=== PATIENT | female | born 1955 | race Caucasian/White ===

== ENCOUNTER → 2023-03-15 12:12 | Outpatient (REF) | payer MEDICARE, OTHER, SELFPAY | LOC: WOUND 12:12 | PROVIDERS: ATTENDING PHYSICIAN Surgery; REFERRING PHYSICIAN Internal Medicine | DX: I87.311 Chronic venous hypertension (idiopathic) with ulcer of right lower extremity (principal); L97.412 Non-pressure chronic ulcer of right heel and midfoot with fat layer exposed; I87.2 Venous insufficiency (chronic) (peripheral); D68.61 Antiphospholipid syndrome; I73.00 Raynaud's syndrome without gangrene; Z79.01 Long term (current) use of anticoagulants; Q85.9 Phakomatosis, unspecified | CPT/HCPCS: 97597; 99214 ==

== ENCOUNTER → 2023-03-18 07:22 | Outpatient (REF) | payer MEDICARE, OTHER, SELFPAY | LOC: RAD 07:22 | PROVIDERS: ATTENDING PHYSICIAN Nurse Practitioner Family; FAMILY PHYSICIAN Internal Medicine | DX: Z13.6 Encounter for screening for cardiovascular disorders (principal); Z00.00 Encounter for general adult medical examination without abnormal findings | CPT/HCPCS: 76770 ==

== ENCOUNTER → 2023-03-22 09:16 | Outpatient (REF) | payer MEDICARE, OTHER, SELFPAY | LOC: WOUND 09:16 | PROVIDERS: ATTENDING PHYSICIAN Surgery; REFERRING PHYSICIAN Internal Medicine | DX: I87.311 Chronic venous hypertension (idiopathic) with ulcer of right lower extremity (principal); L97.412 Non-pressure chronic ulcer of right heel and midfoot with fat layer exposed; Z79.01 Long term (current) use of anticoagulants; I87.2 Venous insufficiency (chronic) (peripheral); D68.61 Antiphospholipid syndrome; I73.00 Raynaud's syndrome without gangrene; Q85.9 Phakomatosis, unspecified | CPT/HCPCS: 11042; 97597 ==

== ENCOUNTER → 2023-03-29 09:43 | Outpatient (REF) | payer MEDICARE, OTHER, SELFPAY | LOC: WOUND 09:43 | PROVIDERS: ATTENDING PHYSICIAN Surgery; FAMILY PHYSICIAN Internal Medicine | DX: I87.311 Chronic venous hypertension (idiopathic) with ulcer of right lower extremity (principal); L97.412 Non-pressure chronic ulcer of right heel and midfoot with fat layer exposed; Z79.01 Long term (current) use of anticoagulants; I87.2 Venous insufficiency (chronic) (peripheral); D68.61 Antiphospholipid syndrome; I73.00 Raynaud's syndrome without gangrene; Q85.9 Phakomatosis, unspecified | CPT/HCPCS: 11042; 97597 ==

== ENCOUNTER → 2023-04-02 14:52 | Outpatient (REF) | payer OTHER, MEDICARE, SELFPAY | LOC: HWRAD 14:52 | PROVIDERS: ATTENDING PHYSICIAN Nurse Practitioner Family | DX: M54.50 Low back pain, unspecified (principal); V89.2XXA Person injured in unspecified motor-vehicle accident, traffic, initial encounter | CPT/HCPCS: 72110 ==

== ENCOUNTER → 2023-04-05 09:46 | Outpatient (REF) | payer OTHER, MEDICARE, SELFPAY | LOC: WOUND 09:46 | PROVIDERS: ATTENDING PHYSICIAN Surgery; FAMILY PHYSICIAN Internal Medicine | DX: I87.311 Chronic venous hypertension (idiopathic) with ulcer of right lower extremity (principal); L97.412 Non-pressure chronic ulcer of right heel and midfoot with fat layer exposed; Z79.01 Long term (current) use of anticoagulants; I87.2 Venous insufficiency (chronic) (peripheral); D68.61 Antiphospholipid syndrome; I73.00 Raynaud's syndrome without gangrene; Q85.9 Phakomatosis, unspecified | CPT/HCPCS: 97597 ==

== ENCOUNTER → 2023-04-12 09:49 | Outpatient (REF) | payer OTHER, MEDICARE, SELFPAY | LOC: WOUND 09:49 | PROVIDERS: ATTENDING PHYSICIAN Surgery; FAMILY PHYSICIAN Internal Medicine | DX: I87.311 Chronic venous hypertension (idiopathic) with ulcer of right lower extremity (principal); L97.412 Non-pressure chronic ulcer of right heel and midfoot with fat layer exposed; Z79.01 Long term (current) use of anticoagulants; I87.2 Venous insufficiency (chronic) (peripheral); D68.61 Antiphospholipid syndrome; I73.00 Raynaud's syndrome without gangrene; Q85.9 Phakomatosis, unspecified | CPT/HCPCS: 99212 ==

== ENCOUNTER → 2023-04-20 10:04 | Outpatient (REF) | payer OTHER, SELFPAY | LOC: WOUND 10:04 | PROVIDERS: ATTENDING PHYSICIAN Surgery; FAMILY PHYSICIAN Internal Medicine | DX: I87.311 Chronic venous hypertension (idiopathic) with ulcer of right lower extremity (principal); L97.412 Non-pressure chronic ulcer of right heel and midfoot with fat layer exposed; I87.2 Venous insufficiency (chronic) (peripheral); D68.61 Antiphospholipid syndrome; I73.00 Raynaud's syndrome without gangrene; Q85.9 Phakomatosis, unspecified; Z79.01 Long term (current) use of anticoagulants | CPT/HCPCS: 99212 ==

== ENCOUNTER → 2023-05-03 09:39 | Outpatient (REF) | payer OTHER, SELFPAY | LOC: WOUND 09:39 | PROVIDERS: ATTENDING PHYSICIAN Surgery; FAMILY PHYSICIAN Internal Medicine | DX: I87.311 Chronic venous hypertension (idiopathic) with ulcer of right lower extremity (principal); L97.412 Non-pressure chronic ulcer of right heel and midfoot with fat layer exposed; I87.2 Venous insufficiency (chronic) (peripheral); D68.61 Antiphospholipid syndrome; I73.00 Raynaud's syndrome without gangrene; Q85.9 Phakomatosis, unspecified; Z79.01 Long term (current) use of anticoagulants | CPT/HCPCS: 11042 ==

== ENCOUNTER → 2023-05-11 13:08 | Outpatient (REF) | payer MEDICARE, OTHER, SELFPAY | LOC: RAD 13:08 | PROVIDERS: ATTENDING PHYSICIAN Surgery; FAMILY PHYSICIAN Internal Medicine | DX: I87.311 Chronic venous hypertension (idiopathic) with ulcer of right lower extremity (principal); I87.2 Venous insufficiency (chronic) (peripheral) | CPT/HCPCS: 93971 ==

== ENCOUNTER → 2023-05-17 09:46 | Outpatient (REF) | payer OTHER, SELFPAY | LOC: WOUND 09:46 | PROVIDERS: ATTENDING PHYSICIAN Surgery; FAMILY PHYSICIAN Internal Medicine | DX: I87.311 Chronic venous hypertension (idiopathic) with ulcer of right lower extremity (principal); L97.412 Non-pressure chronic ulcer of right heel and midfoot with fat layer exposed; I87.2 Venous insufficiency (chronic) (peripheral); D68.61 Antiphospholipid syndrome; I73.00 Raynaud's syndrome without gangrene; Q85.9 Phakomatosis, unspecified; Z79.01 Long term (current) use of anticoagulants | CPT/HCPCS: 99213 ==

== ENCOUNTER → 2023-05-24 09:38 | Outpatient (REF) | payer MEDICARE, OTHER, SELFPAY | LOC: WOUND 09:38 | PROVIDERS: ATTENDING PHYSICIAN Surgery; FAMILY PHYSICIAN Internal Medicine | DX: I87.311 Chronic venous hypertension (idiopathic) with ulcer of right lower extremity (principal); L97.412 Non-pressure chronic ulcer of right heel and midfoot with fat layer exposed; I87.2 Venous insufficiency (chronic) (peripheral); D68.61 Antiphospholipid syndrome; I73.00 Raynaud's syndrome without gangrene; Q85.9 Phakomatosis, unspecified; Z79.01 Long term (current) use of anticoagulants | CPT/HCPCS: 99213 ==

== ENCOUNTER → 2023-05-31 09:48 | Outpatient (REF) | payer MEDICARE, OTHER, SELFPAY | LOC: WOUND 09:48 | PROVIDERS: ATTENDING PHYSICIAN Surgery; FAMILY PHYSICIAN Internal Medicine | DX: I87.311 Chronic venous hypertension (idiopathic) with ulcer of right lower extremity (principal); L97.412 Non-pressure chronic ulcer of right heel and midfoot with fat layer exposed; I87.2 Venous insufficiency (chronic) (peripheral); I73.00 Raynaud's syndrome without gangrene; Q85.9 Phakomatosis, unspecified; Z79.01 Long term (current) use of anticoagulants | CPT/HCPCS: 99212 ==

== ENCOUNTER → 2023-06-14 11:23 | Outpatient (REF) | payer MEDICARE, OTHER, SELFPAY | LOC: WOUND 11:23 | PROVIDERS: ATTENDING PHYSICIAN Surgery; FAMILY PHYSICIAN Internal Medicine | DX: I87.311 Chronic venous hypertension (idiopathic) with ulcer of right lower extremity (principal); L97.412 Non-pressure chronic ulcer of right heel and midfoot with fat layer exposed; I87.2 Venous insufficiency (chronic) (peripheral); D68.61 Antiphospholipid syndrome; I73.00 Raynaud's syndrome without gangrene; Q85.9 Phakomatosis, unspecified; Z79.01 Long term (current) use of anticoagulants | CPT/HCPCS: 99212 ==

== ENCOUNTER → 2023-06-23 13:48 | Outpatient (REF) | payer MEDICARE, OTHER, SELFPAY | LOC: HWRAD 13:48 | PROVIDERS: ATTENDING PHYSICIAN Nurse Practitioner Family | DX: R74.8 Abnormal levels of other serum enzymes (principal) | CPT/HCPCS: 76700 ==

== ENCOUNTER → 2023-07-06 10:21 | Outpatient (REF) | payer MEDICARE, OTHER, SELFPAY | LOC: WOUND 10:21 | PROVIDERS: ATTENDING PHYSICIAN Surgery; FAMILY PHYSICIAN Internal Medicine | DX: I87.311 Chronic venous hypertension (idiopathic) with ulcer of right lower extremity (principal); L97.412 Non-pressure chronic ulcer of right heel and midfoot with fat layer exposed; I87.2 Venous insufficiency (chronic) (peripheral); D68.61 Antiphospholipid syndrome; I73.00 Raynaud's syndrome without gangrene; Q85.9 Phakomatosis, unspecified; Z79.01 Long term (current) use of anticoagulants | CPT/HCPCS: 99212 ==

== ENCOUNTER → 2023-07-19 09:42 | Outpatient (REF) | payer MEDICARE, OTHER, SELFPAY | LOC: WOUND 09:42 | PROVIDERS: ATTENDING PHYSICIAN Surgery; FAMILY PHYSICIAN Internal Medicine | DX: I87.311 Chronic venous hypertension (idiopathic) with ulcer of right lower extremity (principal); L97.412 Non-pressure chronic ulcer of right heel and midfoot with fat layer exposed; Z79.01 Long term (current) use of anticoagulants; I87.2 Venous insufficiency (chronic) (peripheral); D68.61 Antiphospholipid syndrome; I73.00 Raynaud's syndrome without gangrene; Q85.9 Phakomatosis, unspecified | CPT/HCPCS: 99212 ==

== ENCOUNTER → 2023-08-02 10:27 | Outpatient (REF) | payer MEDICARE, OTHER, SELFPAY | LOC: WOUND 10:27 | PROVIDERS: ATTENDING PHYSICIAN Surgery; FAMILY PHYSICIAN Internal Medicine | DX: I87.311 Chronic venous hypertension (idiopathic) with ulcer of right lower extremity (principal); L97.412 Non-pressure chronic ulcer of right heel and midfoot with fat layer exposed; Z79.01 Long term (current) use of anticoagulants; I87.2 Venous insufficiency (chronic) (peripheral); D68.61 Antiphospholipid syndrome; I73.00 Raynaud's syndrome without gangrene; Q85.9 Phakomatosis, unspecified | CPT/HCPCS: 99212 ==

== ENCOUNTER → 2023-08-16 10:14 | Outpatient (REF) | payer MEDICARE, OTHER, SELFPAY | LOC: WOUND 10:14 | PROVIDERS: ATTENDING PHYSICIAN Surgery; FAMILY PHYSICIAN Internal Medicine | DX: I87.311 Chronic venous hypertension (idiopathic) with ulcer of right lower extremity (principal); L97.412 Non-pressure chronic ulcer of right heel and midfoot with fat layer exposed; I87.2 Venous insufficiency (chronic) (peripheral); D68.61 Antiphospholipid syndrome; I73.00 Raynaud's syndrome without gangrene; Q85.9 Phakomatosis, unspecified | CPT/HCPCS: 99212 ==

== ENCOUNTER → 2023-09-06 10:28 | Outpatient (REF) | payer MEDICARE, OTHER, SELFPAY | LOC: WOUND 10:28 | PROVIDERS: ATTENDING PHYSICIAN Surgery; FAMILY PHYSICIAN Family Medicine | DX: I87.311 Chronic venous hypertension (idiopathic) with ulcer of right lower extremity (principal); L97.412 Non-pressure chronic ulcer of right heel and midfoot with fat layer exposed; I87.2 Venous insufficiency (chronic) (peripheral); D68.61 Antiphospholipid syndrome; I73.00 Raynaud's syndrome without gangrene; Q85.9 Phakomatosis, unspecified; Z79.01 Long term (current) use of anticoagulants | CPT/HCPCS: 11042 ==

== ENCOUNTER → 2023-09-13 10:11 | Outpatient (REF) | payer MEDICARE, OTHER, SELFPAY | LOC: WOUND 10:11 | PROVIDERS: ATTENDING PHYSICIAN Surgery; FAMILY PHYSICIAN Family Medicine | DX: I87.311 Chronic venous hypertension (idiopathic) with ulcer of right lower extremity (principal); L97.412 Non-pressure chronic ulcer of right heel and midfoot with fat layer exposed; I87.2 Venous insufficiency (chronic) (peripheral); D68.61 Antiphospholipid syndrome; I73.00 Raynaud's syndrome without gangrene; Q85.9 Phakomatosis, unspecified; Z79.01 Long term (current) use of anticoagulants | CPT/HCPCS: 11042 ==

== ENCOUNTER → 2023-09-20 11:11 | Outpatient (REF) | payer MEDICARE, OTHER, SELFPAY | LOC: WOUND 11:11 | PROVIDERS: ATTENDING PHYSICIAN Surgery; FAMILY PHYSICIAN Family Medicine | DX: I87.311 Chronic venous hypertension (idiopathic) with ulcer of right lower extremity (principal); L97.412 Non-pressure chronic ulcer of right heel and midfoot with fat layer exposed; I87.2 Venous insufficiency (chronic) (peripheral); D68.61 Antiphospholipid syndrome; I73.00 Raynaud's syndrome without gangrene; Q85.9 Phakomatosis, unspecified; Z79.01 Long term (current) use of anticoagulants | CPT/HCPCS: 11042 ==

== ENCOUNTER 2023-09-27 18:07 | Inpatient (IN) | payer MEDICARE, OTHER, SELFPAY ==
[2023-09-27] VITALS (34 sets, daily range): BP systolic 85–134; BP diastolic 59–115; BMI 24.6; BMI 25.0
[2023-09-27 15:01] LABS: % Basophils 1.7 % (0-2); % Eosinophils 4.8 % (0-6); % Immature Granulocytes 0.6 % (0-0.5); % Lymphocytes 21.3 % (20.5-51.1); % Monocytes 7.2 % (1.7-9.3); % Neutrophils 64.4 % (42.2-75.2); Absolute Basophils 0.2 10^3/uL (0-0.2); Absolute Eosinophils 0.4 10^3/uL (0-0.7); Absolute Immature Granulocytes 0.1 10^3/uL (0-0.05); Absolute Lymphocytes 1.9 10^3/uL (1.2-3.4); Absolute Monocytes 0.6 10^3/uL (0.1-0.6); Absolute Neutrophils 5.6 10^3/uL (1.4-6.5); Hematocrit 44.8 % (37.0-47.0); Hemoglobin 15.5 g/dL (12.0-16.0); Mean Corp Hgb Conc. 34.6 g/dL (33.0-37.0); Mean Corpuscular Hgb 30.3 pg (27.0-31.0); Mean Corpuscular Volume 87.5 fL (81.0-99.0); Mean Platelet Volume 9.9 fL (7.4-10.4); Nucleated Red Blood Cells % 0 %; Platelet Count 204 10^3/uL (130-400); Red Blood Cell Count 5.12 10^6/uL (4.20-5.40); Red Cell Dist. Width 14.3 % (11.5-14.5); White Blood Cell Count 8.7 10^3/uL (4.8-10.8)
[2023-09-27 15:17] LABS: ALT (SGPT) 70 U/L (0-35); AST (SGOT) 50 U/L (14-36); Albumin 4.4 g/dl (3.5-5.0); Alkaline Phosphatase 425 U/L (38-126); Blood Urea Nitrogen 16 mg/dl (7-17); Calcium 9.4 mg/dl (8.4-10.2); Carbon Dioxide 24 mmol/L (22-30); Chloride 104 mmol/L (98-107); Glucose 121 mg/dl (70-99); Sodium 137 mmol/L (135-145); Total Bilirubin 0.6 mg/dl (0.2-1.3); Total Protein 7.9 g/dl (6.3-8.2); eGFR > 60.00
[2023-09-27 15:24] LABS: Troponin I 0.881 ng/ml
--- NOTE | 2023-09-27 15:53 | ED.GENMED ---
History of Present Illness
General
Chief Complaint: Chest Pain
Time Seen by Provider: 09/27/23 15:37
History of Present Illness
History of Present Illness:
67-year-old female with history of lupus anticoagulant syndrome on warfarin presents to the emergency department for evaluation of chest tightness that began yesterday. No obvious provoking or palliating factors. She denies any exertional,
pleuritic, or positional nature to her symptoms. Symptoms worsened today, she presented for routine wound care visit and her wound care provider was concerned about her appearance thus sent her to the emergency department. Currently rates the
symptoms as 5 out of 10. Denies any fevers or chills.
Past History
Past History
ED Past Medical History: HTN and Other (antiphospholipid AB syndrome)
Social History
Tobacco: Smoker
Personal:
Living: with family
Review of Systems
Review of Systems
Allergies reviewed?: Yes
All Other Systems: ROS reviewed and negative except as documented in HPI and ROS
Phy Exam
Physical Exam
Physical Exam:
GEN: Well appearing, NAD, WDWN
Eyes: PERRLA, EOMs intact, no scleral icterus
HENT: NCAT, oral mucosa moist, no JVD
Lungs: CTAB, no wheezes, rales, rhonchi, normal chest wall excursion
Cardiac: RRR, no M/R/G, no peripheral edema. Radial pulses 2+ bilat
Abdomen: S, NT, ND, NABS, no masses or hepatosplenomegaly
Neuro: AO x 3
MSK: No gross deformity or ecchymosis. No edema. No digital clubbing
Skin: No rashes, petechiae. Normal color, no pallor or jaundice.
Psych: Calm, cooperative, proper hygiene
Scores
Heart Score for Chest Pain Patients
STEMI patient?: No
History: Moderately Suspicious
ECG: Normal
Age: >/= 65 years
Risk Factors: 1 or 2 Risk Factors
Troponin: >/= 3 x Normal Limit
Heart Score for Chest Pain Patients: 6
Heart Score Risk: 20.3% MACE over next 6 weeks
Course
Orders/Labs/Results
Orders:
Orders
09/27/23 14:39
Electrocardiogram (*1) Urgent
Reason for Study: Chest Pain
Cardiac Monitoring- Treatment ONCE
EKG- Treatment ONCE
IV Insert/Care/Rem.- Treatment PRN
O2 Therapy [RESP] Urgent
Titrate/Wean O2 to maintain O2 sat greater than (%): 90
Special Instructions: Maintain sats >/=90%
Pulse Ox/spot Check [RESP] Urgent
Quantity: 1
Special Instructions: ON ROOM AIR
09/27/23 14:50
Complete Blood Count/With Diff Urgent
Comprehensive Metabolic Panel Urgent
Troponin I Urgent
09/27/23 Dinner
NPO
Allow oral meds: Yes
Allow clear liquids: Sips of Clears
NPO with Ice Chips: Yes
09/27/23 15:48
PT/INR [Prothrombin Time] Urgent
PTT Urgent
09/27/23 15:53
Aspirin Chewable [Low Strength Aspirin] 324 mg PO NOW STA
Nitroglycerin Sublingual [Nitrostat (Sublingual)] 0.4 mg SL NOW STA
CR Chest Portable - 1 View Urgent
Comment:
Reason For Exam: chest pain
Reason Study Needs to be Portable: Other
09/27/23 16:15
Nitroglycerin 100 mg/250 ml [Nitroglycerin Premix] 100 mg in 250 ml IV PER PROTOCOL
Initial dose in mcg/min, then titrate:: 20
Titrate to keep:: Chest Pain Free
Titrate by mcg/min:: 5 mcg/min, may increase by 10 mcg/min if dose > 20 mcg/min
Frequency of titrations (minutes):: every 3-5 minutes
Maximum dose in mcg/min:: 200
Begin to taper infusion when:: Remained at goal for 2hrs
Taper by mcg/min:: 5 mcg/min
Frequency of taper (minutes) if patient maintains goal:: 30
Taper to off?: Yes
If infusion off & no longer maintaining goal:: Contact Provider
09/27/23 17:33
Admit/Transfer Patient As Directed
Co-Sign Provider:
Level of Care: Inpatient admission
Assign to:: IVU
Physician / Group: Dr. Lionel Campos
Diagnosis: [id number] myocardial infarction
Reason for Hospitalization: [id number] myocardial infarction
Expected length of stay greater than two midnights?: Yes
ELOS- Estimated Length of Stay in days: 3
I certify the patient meets the requirements for IP care: Yes
PRN Pain Medication Management As Directed
May give lesser potent ordered pain med per pt: Yes
preference::
Protocol:: Medication orders for pain may be administered in a
manner that supports deferring to patient preference
when the pt is:
- Requesting an ordered lesser potent pain medication.
Least to most potent pain medications are defined
as: acetaminophen < NSAID < tramadol < opioids
(morphine, oxycodone, hydromorphone).
- Requesting a lesser dose of the same medication IF
ORDERED.
- Requesting a less intrusive route of administration
if both routes are prescribed by the provider (PO <
IV).
09/27/23 17:36
Code Status As Directed
Resuscitation Status: Full Code
09/27/23 18:18
Troponin I Q6H
09/27/23 18:46
Echo 2D MMode Color/Doppler Routine
Reason for Study: chest pain
CARDIOLOGY CONSULT Routine
Consulting Provider: Jayden Garcia
Was physician already notified: Yes
WOUND/OSTOMY CONSULT Routine
Reason for Consult: venous stasis right heel wound; left toenail wound
Glycohemoglobin (HgbA1c) Routine
Activity As Directed
Activity Level: As Tolerated
I&O [Intake/ Output] As Directed
Frequency: q12h
INT (Intravenous Needle Therapy) As Directed
Comment: maintain peripheral IV access
Sequential Compression Device [Pneumatic Compression Sleeves] As Directed
Type: Knee high
Vital Signs As Directed
Frequency: q4h
Weight As Directed
Frequency: Daily
Ot Eval And Treat Routine
Pt Eval And Treat Routine
Activity Level: As Tolerated
DX Deep Vein Thrombosis Video Routine
09/27/23 20:00
Metoprolol [Lopressor] 25 mg PO BID
09/27/23 23:15
Troponin I Q6H
09/28/23 05:15
Troponin I Q6H
09/28/23 06:00
Type+Screen IN AM
Complete Blood Count/With Diff IN AM
Comprehensive Metabolic Panel IN AM
PTT IN AM
Prothrombin Time IN AM
09/28/23 08:00
Loratadine [Claritin] 10 mg PO DAILY
09/28/23 11:15
Troponin I Q6H
Abnormal Lab Results
09/27/23 09/27/23
14:50 15:48
Abs Immat Gran (auto) 0.1 H 10^3/uL
(0-0.05)
Immature Gran % 0.6 H %
(0-0.5)
PT 27.9 H Sec
(11.4-14.6)
APTT 53.7 H Sec
(23.4-35.0)
Glucose 121 H mg/dl
(70-99)
AST 50 H U/L
(14-36)
ALT 70 H U/L
(0-35)
Alkaline Phosphatase 425 H U/L
(38-126)
Troponin I 0.881 H* ng/ml
09/27/23 14:50
09/27/23 14:50
Vital Signs
Initial and Last Documented VS:
Initial Vital Signs
Temp Pulse Resp BP Pulse Ox
98.3 F 111 22 124/81 96
09/27/23 14:37 09/27/23 14:37 09/27/23 14:37 09/27/23 14:37 09/27/23 14:37
Last Documented Vital Signs
Temp Pulse Resp BP Pulse Ox
97.7 F 83 16 103/77 98
09/27/23 19:30 09/27/23 20:02 09/27/23 19:30 09/27/23 20:02 09/27/23 19:30
MDM/Problems Addressed
MDM/Problems Addressed:
67-year-old female presenting with chest pain. Although there is no exertional component I see no alternative diagnoses as opposed to acute coronary syndrome given the marked elevation of troponin. Fevers or positional nature to suggest
inflammatory/pericarditis/myocarditis. She has been swelling she is anticoagulated thus PE is not likely. Although EKG is nonischemic her troponin is markedly elevated, patient initially treated with aspirin and sublingual nitro with improvement
thus placed on low-dose nitroglycerin drip to titrate to pain resolution. Will admit to the hospitalist service for further management
Comment
Comment:
EKG independently interpreted by me shows normal sinus rhythm at a rate of [address] changes concerning for ischemia, QTc of 452, no priors for comparison
*Critical Care Note
Total Time (30-74mins, 75-104mins- exclusive of procedures): 35 minutes
comment:
Critical care time: 35 minutes
Critical care time was exclusive of: Separately billable procedures, treating other patients, and teaching time
Critical care was necessary to treat or prevent imminent or life-threatening deterioration of the following conditions: NSTEMI
Critical care time spent personally by me on the following activities:
[x] Review of old charts
[x] Obtaining history from patient or surrogate
[x] Ordering and review of the laboratory studies
[x] Ordering and review of radiographic studies
[x] Ordering and performing treatments and interventions
[x] Patient patient's response to treatment
[x] Development of treatment plan with patient or surrogate
ED Attending Note
-
Portions of this chart may have been created with voice recognition software.� Occasional wrong word or��sound alike� substitutions may have occurred due to the inherent limitations of voice recognition software.
Discharge Plan
Departure
Patient Disposition: Admit
Date of Disposition: 09/27/23
Time of Disposition: 16:18
Admit to: IVU
Presentation/result/management discussed w/ accepting MD/DO: Hospitalist
Discharge Problem:
Non-ST elevation TX (NSTEMI)
Interventions
Interventions:
*Risk Screen - Suicide Last Done: 09/27/23 14:37
*General Assessment Last Done: 09/27/23 14:37
*Neglect/Abuse Screening Last Done: 09/27/23 14:37
ED- Fall Risk Assessment Last Done: 09/27/23 18:40
*ED COVID-19 Vaccine History Last Done: 09/27/23 17:09
*Nursing Disposition Last Done: 09/27/23 18:40
ED- Cardiac Assessment Last Done: 09/27/23 15:41
Discharge Date and Time
Discharge Date/Time: 09/27/23 18:40
[2023-09-27] MEDS: LOW STRENGTH ASPIRIN 324 MG PO (15:55)
[2023-09-27] MEDS: NITROSTAT (SUBLINGUAL) 0.4 MG SL (15:55)
[2023-09-27 16:04] LABS: INR 2.62; PT 27.9 Sec (11.4-14.6)
[2023-09-27 16:05] LABS: APTT 53.7 Sec (23.4-35.0)
--- NOTE | 2023-09-27 16:21 | CON.CAR ---
Addendum entered and electronically signed by Jayden Garcia MD 09/27/23 17:14:
I saw and examined the patient.
The ESTIMATOR AND DRAFTER or PA's note was reviewed and I agree with the note.
Comment: General: Well developed, well nourished in NAD.
Neck: Supple, no JVD, HJR, carotids +2 B/L, no bruits bilaterally.
Heart: Non displaced PMI, RRR, no murmurs, No S3, S4, no rubs.
Lungs: Clear to auscultation bilaterally, no wheeze, rhonchi, rubs bilaterally,
normal expiratory phase.
Abdomen: Normal bowel sounds, soft, non-tender, non-distended.
Extremities: No clubbing, cyanosis or edema bilaterally.
Neuro: Grossly nonfocal, awake, alert and oriented x3.
Bianca has a history of antiphospholipid antibody syndrome on chronic warfarin, history of upper extremity DVT, hypertension, hyperlipidemia. She presented for outpatient visit for chronic leg wound. She complained of chest pain staff and was
sent to the ER. Troponin was 0.88 and is admitted. She notes some chest discomfort at present but feels it is much improved. Of note her pain is not worse with exertion or with taking a deep breath. There is no shortness of breath.
She reluctantly agrees to be admitted. Will hold Coumadin for now and hold off on heparin. Will try IV nitroglycerin. She is reluctant to consider catheterization at the present time but we can reassess based on troponins and echocardiogram.
Original Note:
Consultation
Consultation Request
Date/Time Consultation Requested: 09/27/23
Date/Time Consultation Performed: 09/27/23
Requesting Provider: Hospitalist
Performing Provider: Dr. Garcia
Reason for Consultation: Chest pain, elevated Troponin
Medical History
-
History of Present Illness:
Patient came to [facility] from the wound care center with chest pain and is now being admitted with an elevated Troponin and cardiology has been consulted. Patient says that chest pain started yesterday. Chest pain is substernal without radiation. Pain
is coming and going, but can last for minutes or hours at a time. Pain is at rest and no clear provocation with exertion. She has never had a pain like this before. No SOB. No LE pain or swelling. Her initial Troponin in the ER was 0.88. ECG without
acute changes. She thinks NTG SL x1 in the ER made the pain feel better.
PMH:
Antiphospholipid antibody syndrome
Chronic warfarin, last outpatient INR 06/2023
h/o UE DVT
HTN
Hyperlipidemia
Past Medical History
Past Medical History: Other (in HPI)
Past Surgical History: Gynecological (D&C)
Social History
Tobacco: Smoker
Alcohol: None
Drug: None
Personal: Other (estranged from her )
Living: Alone
Family History
Family History: Cancer
Allergies / Home Medications
Allergy/AdvReac Type Severity Reaction Status Date / Time
adhesive tape Allergy Rash Verified 09/27/23 14:37
�Medication �Instructions �Recorded �Confirmed �Type
warfarin 1 mg tablet 6 mg PO TU@0 02/12/18 09/27/23 History
furosemide 40 mg tablet (Lasix) 40 mg PO DAILY 12/24/22 09/27/23 History
nifedipine 60 mg tablet,extended 60 mg PO DAILY 12/24/22 09/27/23 History
release
loratadine 10 mg tablet (Claritin) 10 mg PO DAILY 09/27/23 09/27/23 History
warfarin 1 mg tablet 7 mg PO SUMOWETHFRSA@1900 09/27/23 09/27/23 History
Review of Systems
-
History Source: Patient
All other systems: Negative unless noted
Physical Exam
Vital Signs
Temp Pulse Resp BP Pulse Ox
98.3 F 98 14 107/75 94
09/27/23 14:37 09/27/23 16:00 09/27/23 16:00 09/27/23 16:00 09/27/23 16:00
GEN: NAD, AAOx3
HEENT: EOMI, MMM
LUNGS: CTA B/L, no wheezes/rales
CV: Reg, S1/S2, no murmur
ABD: soft, BS+, NT, ND
EXT: No clubbing, cyanosis, lesions or edema B/L
NEURO: Gross non-focal
SKIN: Warm, dry and pink. No rash
Lab Results
09/27/23 14:50
09/27/23 14:50
Troponin I 0.881 ng/ml H* 09/27/23 14:50
Impression / Plan
-
PCP: previously followed with Dr. Oliver and waiting to be seen as a new patient at [facility]
Cardiology: Dr. Damon, last seen 2012
Impression:
Chest pain
Elevated Troponin 0.8 initially
Hyperglycemia
Elevated LFTs
Antiphospholipid antibody syndrome
Chronic warfarin, last outpatient INR 06/2023
h/o UE DVT
HTN
Hyperlipidemia
Echo 07/28/2022: EF 60%, no wall motion abnormality, normal RV size and function
Plan:
-Patient came to [facility] from the [facility] with chest pain and is now being admitted with an elevated Troponin and cardiology has been consulted. Patient says that chest pain started yesterday. Chest pain is substernal without radiation. Pain
is coming and going, but can last for minutes or hours at a time. Pain is at rest and no clear provocation with exertion. She has never had a pain like this before. No SOB. No LE pain or swelling. Her initial Troponin in the ER was 0.88. ECG without
acute changes as reviewed by me. She thinks NTG SL x1 in the ER made the pain feel better.
-Admit and trend Troponin and ECG
-Check echo
-Start Heparin gtt once INR is below 2.5.
-Chest pain free after NTG SL x1 and then Nitro gtt started in ER. Follow BP.
-INR is therapeutic at 2.6 today. INR goal is 2.5 to 3 according to patient. INRs previously managed using a home INR machine and with the PCP, but her PCP retired and she has not checked an outpatient INR since June. Coumadin is for h/o
antiphospholipid antibody syndrome. She has a h/o UE DVTs, but has never had a LE DVT.
-Talked about possibility of cardiac cath and patient initially reluctant, but is agreeable to admission with serial Troponin and echo. Will continue to discuss next steps with patient pending echo and Troponin.
-Check CVE
-LFTs elevated. If trending down in AM then would start statin if we think this is ACS.
-BP 107/75. Patient takes nifedipine 60 mg daily as an outpatient. Would hold nifedipine and start Lopressor 25 mg BID.
[2023-09-27] MEDS: NITROGLYCERIN PREMIX 250 IV (17:02)
--- NOTE | 2023-09-27 17:35 | W.PN.UPDATE ---
Update Note
Progress Note Update
I personally performed a history and physical exam of the patient and discussed management with the resident. I reviewed the resident's note and agree with the documented findings and plan of care HPI/CC.
67-year-old female presents with a chief complaint of chest pain. She describes the pain as feeling like 'something is there.' Denies exertion exacerbating the chest pain.
108/79, 89, 19, 98.3 F, 97% RA
Gen: NAD, AAOx3.
Eyes: EOMI, PERRLA, no scleral icterus.
Neck: supple.
CV: RRR, +S1/S2, no m/r/g.
Resp: CTAB, no rales, wheezes, or rhonchi.
Abd: +BS, soft, NT, ND
Skin: No rashes.
Neuro: CN 2-12 intact, non-focal.
Psych: Normal mood and affect.
Lab Results
09/27/23 09/27/23
14:50 15:48
WBC 8.7
RBC 5.12
Hgb 15.5
Hct 44.8
MCV 87.5
MCH 30.3
MCHC 34.6
RDW 14.3
Plt Count 204
MPV 9.9
Abs Immat Gran (auto) 0.1 H
Absolute Neuts (auto) 5.6
Absolute Lymphs (auto) 1.9
Absolute Monos (auto) 0.6
Absolute Eos (auto) 0.4
Absolute Basos (auto) 0.2
Immature Gran % 0.6 H
Neutrophils % 64.4
Lymphocytes % 21.3
Monocytes % 7.2
Eosinophils % 4.8
Basophils % 1.7
Nucleated RBC % 0
PT 27.9 H
INR 2.62
APTT 53.7 H
Sodium 137
Potassium 4.0
Chloride 104
Carbon Dioxide 24
BUN 16
Creatinine 0.9
eGFR > 60.00
Glucose 121 H
Calcium 9.4
Total Bilirubin 0.6
AST 50 H
ALT 70 H
Alkaline Phosphatase 425 H
Troponin I 0.881 H*
Total Protein 7.9
Albumin 4.4
ECG (read by me): NSR @ 88, normal axis/intervals, no acute ST/TW changes
Elevated trop:
-Trop 0.881, cont to trend
-monitor on tele
-check echo
-cont NTG gtt, titrate to alleviate chest discomfort
-Holding home coumadin (treatment for APLAb). Initiate heparin gtt once INR<2
-discussed with Dr. Garcia
--- NOTE | 2023-09-27 17:46 | HPS.HSE ---
Family Physician
-
Family Physician: Barbara Oliver
Chief Complaint
-
Chest pain
History of Present Illness
Bianca Joy, age 67, was the the wound care center earlier this morning on 09-27-23 when she mentioned she was experiencing chest pain since yesterday and at present; she was sent to the emergency for further evaluation. The pain is
intermittent, sometimes persists for minutes and goes away, and other times persists for hours and goes away. Not alleviated or exacerbated with rest or activity, respectively. No other identifiable palliative factors. At worst, the pain is 5/10 but
usually 2/10. On admission, her blood work was notable for troponin 0.88. ECG and chest x-ray were unremarkable. She was admitted for further evaluation and management.
Medical History
Past Medical History
Past Medical History: Reports Other (antiphospholipid antibody syndrome, hypertension, venous stasis, allergic rhinitis, history of DVT in UE and subclavian vein, venous ulcer)
Past Surgical History: Reports Other (D&C)
Social History
Tobacco: Smoker
Alcohol: Occasional
Drug: None
Living: Alone
Family History
Family History: Not pertinent
Allergies / Home Medications
Allergies reflects when Allergies were last updated in [employer].
Home Medications with original date entered in [employer]
Allergy/Medication List:
Allergies
Allergy/AdvReac Type Severity Reaction Status Date / Time
adhesive tape Allergy Rash Verified 09/27/23 14:37
Home Medications
warfarin 1 mg tablet 6 mg PO TU@189902/12/18
furosemide 40 mg tablet (Lasix) 40 mg PO DAILY 12/24/22
nifedipine 60 mg tablet,extended release 60 mg PO DAILY 12/24/22
loratadine 10 mg tablet (Claritin) 10 mg PO DAILY 09/27/23
warfarin 1 mg tablet 7 mg PO SUMOWETHFRSA@189909/27/23
Review of Systems
-
History Source: Patient
Constitutional: Reports No Symptoms
EENT: Reports No Symptoms
Respiratory: Reports No Symptoms
Cardiac: Reports Chest Pain (5/10 at worst; 2/10 at baseline)
Abdomen/GI: Reports No Symptoms
: Reports No Symptoms
Musculoskeletal: Reports No Symptoms
Skin: Reports No Symptoms
Neurological: Reports No Symptoms
Endocrine: Reports No Symptoms
Hematologic/Lymphatic: Reports No Symptoms
Psych: Reports No Symptoms
Physical Exam
Vital Signs
Vital Signs
Temp Pulse Resp BP Pulse Ox
98.3 F 89 19 108/79 97
09/27/23 14:37 09/27/23 17:03 09/27/23 17:03 09/27/23 17:03 09/27/23 17:07
Physical Exam
General: No Apparent Distress and Comfortable
HEENT: NormoCephalic, Anicteric, Moist mucous membranes, Atraumatic and No Ptosis
Respiratory: Clear and Non Labored Respirations
Cardiac: S1/S2 and Regular Rhythm
Breast: Deferred by me
GI: Soft, Non Tender, Non Distended and No Hepatosplenomegaly
Rectal: Deferred by Provider
Genito-urinary: No costovertebral tender
Musculoskeletal: No Clubbing, No Cyanosis and No Edema
Skin: Warm, Dry, IV/Catheter Site and Other (right heel wound; left toenail wound)
Neuro: Awake, Alert, Oriented and Nonfocal/grossly intact
Hematologic/Lymphatic: No Lymphadenopathy
Psych: Calm
Laboratory Results
-
09/27/23 14:50
09/27/23 14:50
Laboratory Results
PT 27.9 Sec (11.4-14.6) H 09/27/23 15:48
INR 2.62 09/27/23 15:48
APTT 53.7 Sec (23.4-35.0) H 09/27/23 15:48
Total Bilirubin 0.6 mg/dl (0.2-1.3) 09/27/23 14:50
AST 50 U/L (14-36) H 09/27/23 14:50
ALT 70 U/L (0-35) H 09/27/23 14:50
Alkaline Phosphatase 425 U/L (38-126) H 09/27/23 14:50
Troponin I 0.881 ng/ml H* 09/27/23 14:50
Impression/Plan
-
Impression and plan
Elevated troponin
Suspected [id number] myocardial infarction
- Troponin 0.881 on admission; trend to peak.
- Check echocardiogram.
- Continue nitroglycerine drip with hold parameters for hypotension.
- Holding warfarin; can start heparin drip if INR <2.0 in the morning.
- Hold nifedipine and furosemide; continue metoprolol.
- Admit to IVU; monitor on telemetry.
- NPO for now; may need catheterization.
Antiphospholipid antibody syndrome
History of upper extremity deep vein thrombosis
- INR within range on warfarin; holding for now.
- Re-check INR in AM.
Chronic venous stasis
Stage III right heel venous stasis wound
- Hold furosemide.
- Consult wound care; gets debridement at the center.
Essential hypertension
- Hold medications per above; continue metoprolol.
Allergic rhinitis
- Continue loratadine.
VTE prophylaxis
- Hold warfarin; can eventually do heparin drip per above.
- SCD.
Code status
- Full.
[2023-09-27] MEDS: TYLENOL 650 MG PO (19:17)
[2023-09-27] MEDS: LOPRESSOR 25 MG PO (19:19)
--- NOTE | 2023-09-27 20:41 | PTCARENOTE ---
Pt. received from ED at change of shift. Pt. AOx3 with 2/10 chest pain and 6/10 LE pain. VS WNL. Tele reading NSR. No other complaints at this time. Pt. oriented to room. Continuing to monitor at this time.
[2023-09-27] MEDS: ULTRAM 25 MG PO (22:55)
[2023-09-28] VITALS (7 sets, daily range): BP systolic 98–123; BP diastolic 66–91; BMI 24.4
[2023-09-28] MEDS: TYLENOL 650 MG PO ×2 (03:59→11:20)
[2023-09-28] MEDS: TORADOL 15 MG IV ×2 (05:06→23:54)
[2023-09-28 05:18] LABS: % Basophils 2.2 % (0-2); % Eosinophils 11.2 % (0-6); % Immature Granulocytes 0.7 % (0-0.5); % Lymphocytes 33.8 % (20.5-51.1); % Neutrophils 43.1 % (42.2-75.2); Absolute Basophils 0.2 10^3/uL (0-0.2); Absolute Eosinophils 0.9 10^3/uL (0-0.7); Absolute Immature Granulocytes 0.1 10^3/uL (0-0.05); Absolute Lymphocytes 2.6 10^3/uL (1.2-3.4); Absolute Monocytes 0.7 10^3/uL (0.1-0.6); Absolute Neutrophils 3.3 10^3/uL (1.4-6.5); Hematocrit 39.1 % (37.0-47.0); Hemoglobin 13.6 g/dL (12.0-16.0); Mean Corp Hgb Conc. 34.8 g/dL (33.0-37.0); Mean Corpuscular Hgb 30.1 pg (27.0-31.0); Mean Corpuscular Volume 86.5 fL (81.0-99.0); Mean Platelet Volume 10.4 fL (7.4-10.4); Nucleated Red Blood Cells % 0 %; Platelet Count 205 10^3/uL (130-400); Red Blood Cell Count 4.52 10^6/uL (4.20-5.40); Red Cell Dist. Width 14.2 % (11.5-14.5); White Blood Cell Count 7.7 10^3/uL (4.8-10.8)
[2023-09-28 05:24] LABS: INR 2.47; PT 26.7 Sec (11.4-14.6)
[2023-09-28 05:25] LABS: APTT 56.1 Sec (23.4-35.0)
[2023-09-28 07:17] LABS: ALT (SGPT) 60 U/L (0-35); AST (SGOT) 45 U/L (14-36); Alkaline Phosphatase 371 U/L (38-126); Blood Urea Nitrogen 20 mg/dl (7-17); Calcium 9.2 mg/dl (8.4-10.2); Carbon Dioxide 20 mmol/L (22-30); Chloride 105 mmol/L (98-107); Estimated Creatinine Clearance 72 ml/min; Glucose 98 mg/dl (70-99); HDL Cholesterol 56 mg/dl; LDL Cholesterol, Calculated 159 mg/dl; Potassium 3.8 mmol/L (3.5-5.1); Sodium 134 mmol/L (135-145); Total Bilirubin 0.5 mg/dl (0.2-1.3); Total Cholesterol 239 mg/dl (50-199); Total Protein 6.9 g/dl (6.3-8.2); Triglyceride 120 mg/dl (10-149); Very Low Density Lipoprotein 24 mg/dl (0-30); eGFR > 60.00
[2023-09-28] MEDS: LOPRESSOR 25 MG PO (08:22)
[2023-09-28] MEDS: CLARITIN 10 MG PO (08:22)
--- NOTE | 2023-09-28 09:04 | W.PN.HOSP.TC ---
Addendum entered and electronically signed by Lionel Campos MD 09/28/23 09:26:
I saw and evaluated the patient. I reviewed the resident�s note and agree with findings and plan as documented in the resident�s note.
Gen: NAD, AAOx3.
Eyes: EOMI, PERRLA, no scleral icterus.
Neck: supple.
CV: remains RRR, +S1/S2, no m/r/g.
Resp: remains CTAB, no rales, wheezes, or rhonchi.
Abd: remains +BS, soft, NT, ND
Skin: No rashes.
Neuro: CN 2-12 intact, non-focal.
Psych: Normal mood and affect.
ECG (read by me): NSR @ 88, normal axis/intervals, no acute ST/TW changes
Elevated trop:
-Trop trending up, now 1.500
-monitor on tele
-check echo
-was briefly on NTG gtt on admission, now off
-Holding home coumadin (treatment for APLAb). Initiate heparin gtt once INR<2.
-discussed with Dr. Garcia at length
-will need cath but INR needs to be lower. Dr. Gilmore to eval. Consideration is being given for Vit K administration. If Vit K is given will need to keep a close eye on INR (would check Q12H) and bridge with heparin as soon as INR < 2.
Total time spent on today's encounter was 50 minutes which included time spent in counseling the patient/family regarding diagnosis and treatment plan as listed above, goals of care, and symptom management. Case was discussed with nursing staff,
specialists, and care coordinators/case management. All labs and imaging personally reviewed by me. Remainder the time spent in detailed review of previous records, lab data, imaging, and other medical provider documentation.
Original Note:
Today's Communication/Plan
-
- Catheterization and echocardiogram today.
- Continue metoprolol, and nitroglycerin if needed.
Assessment / Plan
Assessment / Plan
Assessment
Bianca Joy, age 67, was at the wound care center earlier this morning on 09-27-23 when she mentioned she was experiencing chest pain since yesterday and at present; she was sent to the emergency for further evaluation. The pain is
intermittent, sometimes persists for minutes and goes away, and other times persists for hours and goes away. Not alleviated or exacerbated with rest or activity, respectively. No other identifiable palliative factors. At worst, the pain is 5/10 but
usually 2/10. On admission, her blood work was notable for troponin 0.88. ECG and chest x-ray were unremarkable. She was admitted for further evaluation and management.
Impression and plan
Elevated troponin
Suspected hqk-GS-[id number] myocardial infarction
- Troponin 0.881 on admission, peaked at 1.500.
- Check echocardiogram.
- Nitroglycerine drip with hold parameters for hypotension.
- Holding warfarin; can start heparin drip if INR <2.0.
- Hold nifedipine and furosemide; continue metoprolol.
- Admit to IVU; monitor on telemetry.
- NPO; planned catheterization today.
Antiphospholipid antibody syndrome
History of upper extremity deep vein thrombosis
- INR within range on warfarin; holding for now.
- Re-check INR.
Chronic venous stasis
Stage III right heel venous stasis wound
- Hold furosemide.
- Consult wound care; gets debridement at the center.
Essential hypertension
- Hold medications per above; continue metoprolol.
Allergic rhinitis
- Continue loratadine.
VTE prophylaxis
- Hold warfarin; can eventually do heparin drip per above.
- SCD.
Code status
- Full.
Anticipated Discharge: 24 - 48 hours
Subjective/Interval History
-
Date of Service: September 28, 2023
Objective Data
-
Labs:
Laboratory Results
09/28/23 09/28/23
04:50 05:53
WBC 7.7
Hgb 13.6
Hct 39.1
Plt Count 205
PT 26.7 H
INR 2.47
APTT 56.1 H
Sodium Cancelled 134 L
Potassium Cancelled 3.8
Chloride Cancelled 105
Carbon Dioxide Cancelled 20 L
BUN Cancelled 20 H
Creatinine Cancelled 0.7
Glucose Cancelled 98
Calcium Cancelled 9.2
Total Bilirubin Cancelled 0.5
AST Cancelled 45 H
ALT Cancelled 60 H
Alkaline Phosphatase Cancelled 371 H
Vital Signs:
Vital Signs
Temp Pulse Resp BP Pulse Ox
97.4 F 76 16 99/67 99
09/28/23 07:28 09/28/23 03:17 09/28/23 07:28 09/28/23 03:17 09/28/23 07:28
I&O
09/27/23 09/28/23 09/29/23
06:59 06:59 06:59
Intake Total 150 / 150
Balance 150 / 150
Review of Systems
-
History Source: Patient
Constitutional: Reports No Symptoms
EENT: Reports No Symptoms Reported
Respiratory: Reports No Symptoms
Cardiac: Reports No Symptoms
Abdomen/GI: Reports No Symptoms
Breast: Reports No Symptoms
Genitourinary: Reports No Symptoms
Musculoskeletal: Reports No Symptoms
Skin: Reports No Symptoms
Neuro: Reports No Symptoms
Endocrine: Reports No Symptoms
Hematologic / Lymphatic: Reports No Symptoms
Allergy / Immunology: Reports No Symptoms
Physical Exam
-
General: No Apparent Distress and Comfortable
HEENT: Normocephalic, Atraumatic, Moist Mucous Membranes and Anicteric
Respiratory: Clear to Auscultation and Non Labored Respirations
Cardiac: Regular Rhythm and S1/S2
GI: Soft, Nontender and Nondistended
Genito-urinary: No Costovertebral Tender
Musculoskeletal: No Clubbing, No Cyanosis and No Edema
Skin: Warm and IV Access / Catheter Site
Psych: Calm
[2023-09-28] MEDS: MEPHYTON 2.5 MG PO (10:36)
--- NOTE | 2023-09-28 11:48 | WOUNDNOTE ---
R LATERAL HEEL/ANKLE
--- NOTE | 2023-09-28 11:49 | WOUNDNOTE ---
R LATERAL HEEL/ANKLE WITH FLASH
--- NOTE | 2023-09-28 11:49 | WOUNDNOTE ---
L 2ND TOE TIP
--- NOTE | 2023-09-28 11:50 | WOUNDNOTE ---
CHIO RN note: Patient admitted with Non ST elevation IA.
See H&P for complete history.
PMH: lupus anticoagulant syndrome, DVT upper extremity- on chronic Coumadin, HTN, arthritis, wounds on feet.
Wound Location and type/assessment: Patient admitted with: R lateral ankle/heel venous ulcer. Goes to [facility] who sent patient to ER last visit, reviewed current treatment with Dr. Su. Coflex compression wrap was removed at [facility] yesterday and
dry gauze dressing applied to wound. Base of wound mostly pink with scant yellow adherent slough, periwound macerated. Has scattered red dots on R leg, cluster on anterior ankle, patient states she got from Coflex wrap.+ palpable pedal pulses, heels
are intact, trace edema. L 2nd toe FT ulcer, yellow dry slough, small drainage, goes to Insole Reinforcer for treatment. Patient reports it started when patient tried to clean under nail bed causing ulcer. Insole Reinforcer removed nail last visit and patient
currently using a band aid. Both wounds painful to touch.
Appetite: Good.
Pressure redistribution devices in place: On air mattress, is ad moses, can be on Accumax bed
Plan:Recommend honey gel dressing to both wounds, skin prep periwound. Julio wrap to R leg daily as tolerates.
Will confirm orders with hospitalist and updated nurse Fadumo. Called [employer] for supplies.
Updated care plan and will follow as needed.
Note to case management of equipment requested for discharge: none.
Recommend follow up at wound care center upon discharge.
[2023-09-28 12:30] LABS: Glycohemoglobin (HgbA1c) 5.1 % (4.0-5.6)
--- NOTE | 2023-09-28 13:04 | W.PN.CARDCBS ---
Addendum entered and electronically signed by Jayden Garcia MD 09/28/23 14:15:
I saw and examined the patient.
The CHRISTIAN COUNSELOR or PA's note was reviewed and I agree with the note.
Comment: General: Well developed, well nourished in NAD.
Neck: Supple, no JVD, HJR, carotids +2 B/L, no bruits bilaterally.
Heart: Non displaced PMI, RRR, no murmurs, No S3, S4, no rubs.
Lungs: Clear to auscultation bilaterally, no wheeze, rhonchi, rubs bilaterally,
normal expiratory phase.
Extremities: No clubbing, cyanosis or edema bilaterally.
Neuro: Grossly nonfocal, awake, alert and oriented x3.
Discussed with patient in detail and she is agreeable to consider cardiac catheterization. Continue to hold warfarin and will need to consider IV heparin when INR drops below 2.0. She had vitamin K and hopefully catheterization can be done in the
next 24 to 48 hours. Start Lipitor 40 mg. Check echocardiogram.
Original Note:
Today's Communication / Plan
-
Echo pending
Warfarin on hold
Provided 2.5 mg vitamin K
Repeat INR this afternoon, once INR less than 2 initiate heparin drip
Tentative cardiac catheterization within next 24 to 48 hours once INR less than 1.8
Initiate 40 mg atorvastatin
Impression / Plan
-
PCP: previously followed with Dr. Oliver and waiting to be seen as a new patient at [facility]
Cardiology: Dr. Damon, last seen 2012
Impression:
Presented 09/27/2023 with chest pain
Elevated Troponin 0.8 initially, peak 1.50
Hyperglycemia
Elevated LFTs
Antiphospholipid antibody syndrome
Chronic warfarin, last outpatient INR 06/2023
h/o UE DVT
HTN
Hyperlipidemia
Echo 07/28/2022: EF 60%, no wall motion abnormality, normal RV size and function
Echo 09/28/2023: Pending
Plan:
-Presented 09/27/2023 with chest pain improved with sublingual nitroglycerin and ASA 325 mg x 1 in ED.
-Abnormal troponin, peaked at 1.50. Suspect NSTEMI
-EKG shows sinus rhythm without ischemic changes. Telemetry reviewed without arrhythmia
-Patient currently chest pain-free and has not required any additional nitroglycerin
-Echo pending
-Plan is for cardiac catheterization once INR is less than 1.8, Ideally less than 1.5. Patient is agreeable to this plan
-Patient has history of antiphospholipid antibody syndrome with history of upper extremity DVTs. Maintained on chronic anticoagulation with warfarin. INR goal is 2.5 to 3 according to patient. INRs previously managed using a home INR machine and
with the PCP, but her PCP retired and she has not checked an outpatient INR since June.
-Coumadin placed on hold at time of admission INR dropped from 2.62->2.47. After multi disciplinary team discussion patient was provided vitamin K (Mephyton) 2.5 mg 09/28/2023 in am. INR being repeated in PM of 09/28/2023. Once INR less than 2.0
would initiate IV heparin per protocol.
-LFTs elevated. These appear to be chronically elevated and workup as outpatient included abdominal ultrasound in June 2023 which showed no acute hepatobiliary abnormalities with cholelithiasis.
-Lipids prestatin TC 239, HDL 56, LDL 159, triglycerides 120 will initiate atorvastatin 40 mg daily
-Patient takes nifedipine 60 mg daily as an outpatient. Nifedipine held and and start Lopressor 25 mg BID. GDMT as BP allows
HPI 09/27/2023:
Patient came to [facility] from the [facility] care center with chest pain and is now being admitted with an elevated Troponin and cardiology has been consulted. Patient says that chest pain started yesterday. Chest pain is substernal without radiation. Pain
is coming and going, but can last for minutes or hours at a time. Pain is at rest and no clear provocation with exertion. She has never had a pain like this before. No SOB. No LE pain or swelling. Her initial Troponin in the ER was 0.88. ECG without
acute changes as reviewed by me. She thinks NTG SL x1 in the ER made the pain feel better.
Progress Note - Sleeper Cutter
Subjective
Date of Service: September 28, 2023
Patient seen and examined. Patient ambulating around room without chest pain or shortness of breath. Overall she is feeling well.
Objective
Labs:
09/28/23 04:50
09/28/23 05:53
Labs
Hgb 13.6 g/dL (12.0-16.0) 09/28/23 04:50
Hct 39.1 % (37.0-47.0) 09/28/23 04:50
Plt Count 205 10^3/uL (130-400) 09/28/23 04:50
PT 26.7 Sec (11.4-14.6) H 09/28/23 04:50
INR 2.47 09/28/23 04:50
APTT 56.1 Sec (23.4-35.0) H 09/28/23 04:50
Sodium 134 mmol/L (135-145) L 09/28/23 05:53
Potassium 3.8 mmol/L (3.5-5.1) 09/28/23 05:53
BUN 20 mg/dl (7-17) H 09/28/23 05:53
Creatinine 0.7 mg/dL (0.6-1.0) 09/28/23 05:53
Glucose 98 mg/dl (70-99) 09/28/23 05:53
Troponins
09/27/23 09/27/23 09/27/23
14:50 18:18 23:05
Troponin I 0.881 H* 1.150 H* D 1.450 H* D
09/28/23 09/28/23
04:50 10:55
Troponin I 1.500 H* 1.260 H*
Vital Signs and I&O:
Vital Signs
Temp Pulse Resp BP Pulse Ox
97.5 F 91 16 9967 100
09/28/23 11:51 09/28/23 11:51 09/28/23 11:51 09/28/23 03:17 09/28/23 11:51
Vital Signs
Temp Pulse Resp BP Pulse Ox
97.5 F 91 16 100
09/28/23 11:51 09/28/23 11:51 09/28/23 11:51 09/28/23 03:17 09/28/23 11:51
Intake & Output
09/26/23 09/27/23 09/28/23 09/29/23
06:59 06:59 06:59 06:59
Intake Total 150 / 150
Balance 150 / 150
Physical Exam
Physical Exam
GEN: No distress, awake, Ox3, walking around room
HEENT: supple, anicteric, mmm
LUNGS: CTA, no wheezes/rales
CV: Reg, S1/S2, no murmur, rub or gallop
ABD: soft, BS+, NT/ND
EXT: No edema, edema or cyanosis, right lower extremity in Julio wrap, left second toe wrapped in gauze
NEURO: Gross non-focal
SKIN: No rash, warm, dry, pink
--- NOTE | 2023-09-28 13:20 | CM ---
Reviewed chart. Met with Mrs. Bunn to review discharge plans. She states prior to admission she resides alone in a three story home with one step to enter. She states she has a full flight of steps to get to her full bathroom/bedroom. She
states she has a powder room on the first floor. She states prior to admission she was independent with ambulation and adls. She states she does not have any DME in the home. She states she has a prescription plan and uses [facility]. She states
she goes to the [facility] weekly. Medical work-up in progress. The discharge plan is return home with resumption of weekly visits at the [facility]ound Care [facility] when medically stable.
[2023-09-28] MEDS: TYLENOL 1000 MG PO ×2 (15:48→21:37)
[2023-09-28] MEDS: LIPITOR 40 MG PO (17:42)
--- NOTE | 2023-09-28 18:25 | PTCARENOTE ---
Pt c/o R ankle, L 2nd toe and lower back pain, unrelieved with Tylenol. Hospitalist resident, Carlos Aleman, notified, Lidoderm patch x2 ordered.
[2023-09-28 19:29] LABS: INR 1.61
[2023-09-28] MEDS: LOPRESSOR PO (20:59)
[2023-09-28 21:33] LABS: Hematocrit 39.3 % (37.0-47.0); Hemoglobin 13.8 g/dL (12.0-16.0); Mean Corp Hgb Conc. 35.1 g/dL (33.0-37.0); Mean Corpuscular Hgb 31.4 pg (27.0-31.0); Mean Corpuscular Volume 89.5 fL (81.0-99.0); Mean Platelet Volume 10.3 fL (7.4-10.4); Platelet Count 216 10^3/uL (130-400); Red Blood Cell Count 4.39 10^6/uL (4.20-5.40); Red Cell Dist. Width 14.1 % (11.5-14.5); White Blood Cell Count 10.1 10^3/uL (4.8-10.8)
[2023-09-28] MEDS: LIDOCAINE 4% PATCH 2 PATCH TOPICAL (21:38)
[2023-09-28 21:45] LABS: APTT 39.8 Sec (23.4-35.0)
[2023-09-28] MEDS: HEPARIN 25000 UNITS/250 ML IV (21:51)
[2023-09-29] VITALS (14 sets, daily range): BP systolic 77–126; BP diastolic 45–80; PULSE 74; O2SAT 99; BMI 24.5
--- NOTE | 2023-09-29 03:29 | DOWNTIME ---
There was a [employer] Client Junk Removal Specialist Downtime on 09/29/2023 from 0100 to 09/29/2023 at 0252. Downtime documentation of patient's care, including medication administrations, has been reconciled in the electronic record per guidelines. Refer to the
patient's paper chart under the miscellaneous tab to see printed paper medication records and downtime forms.
[2023-09-29 04:47] LABS: Hematocrit 39.4 % (37.0-47.0); Hemoglobin 13.7 g/dL (12.0-16.0); Mean Corp Hgb Conc. 34.8 g/dL (33.0-37.0); Mean Corpuscular Hgb 29.9 pg (27.0-31.0); Mean Platelet Volume 10.5 fL (7.4-10.4); Platelet Count 228 10^3/uL (130-400); Red Blood Cell Count 4.58 10^6/uL (4.20-5.40); Red Cell Dist. Width 14.1 % (11.5-14.5); White Blood Cell Count 19.1 10^3/uL (4.8-10.8)
[2023-09-29 05:07] LABS: INR 1.09; PT 13.9 Sec (11.4-14.6)
[2023-09-29 05:09] LABS: APTT 47.9 Sec (23.4-35.0); Blood Urea Nitrogen 28 mg/dl (7-17); Calcium 9.4 mg/dl (8.4-10.2); Carbon Dioxide 22 mmol/L (22-30); Chloride 103 mmol/L (98-107); Estimated Creatinine Clearance 63 ml/min; Glucose 118 mg/dl (70-99); Potassium 4.2 mmol/L (3.5-5.1); Sodium 132 mmol/L (135-145); eGFR > 60.00
--- NOTE | 2023-09-29 05:15 | PTCARENOTE ---
Assumed care of pt. at change of shift. VSS, NSR on tele. Pt. with complaints of 8/10 b/l foot pain. Tylenol and lidocaine patches administered per order, patient reported no relief of pain. REIMBURSEMENT REP made aware and ordered one time dose of Toradol IV.
Pt. reported slight improvement of pain following dose. INR resulted 1.61 and patient started on heparin gtt per order, currently infusing at 10ml/hr. Patient remains NPO since midnight for cardiac cath in AM. Plan of care discussed and pt.
verbalizes understanding. Can make needs known. Call loyd within reach.
--- NOTE | 2023-09-29 08:30 | W.PN.HOSP.TC ---
Addendum entered and electronically signed by Lionel Campos MD 09/29/23 08:57:
I saw and evaluated the patient. I reviewed the resident�s note and agree with findings and plan as documented in the resident�s note.
Patient denies chest pain or shortness of breath. She expresses frustration over being in the hospital.
Gen: NAD, AAOx3.
Eyes: EOMI, PERRLA, no scleral icterus.
Neck: supple.
CV: continues to remain RRR, +S1/S2, no m/r/g.
Resp: continues to remain CTAB, no rales, wheezes, or rhonchi.
Abd: continues to remain +BS, soft, NT, ND
Skin: No rashes.
Neuro: CN 2-12 intact, non-focal.
Psych: Normal mood and affect.
ECG (read by me): NSR @ 88, normal axis/intervals, no acute ST/TW changes
Echo: Normal left ventricular chamber size. Mild concentric left ventricular
hypertrophy. Mildly reduced left ventricular systolic function. Global
hypokinesis. LV ejection fraction is 45-50% by Dillard's method of discs.
Normal diastolic function.
Normal right ventricular size and function.
Normal atria.
Mitral annular calcification. Mild mitral regurgitation.
Trace tricuspid regurgitation. Estimated pulmonary artery pressure of 20-25
mmHg. Assuming a right atrial pressure of 8 mmHg.
Normal pericardium without effusion.
The IVC is mildly dilated.
No prior study for comparison.
Elevated trop due to acute NSTEMI (POA):
-Trop peaked at 1.500, now trending down
-monitor on tele
-echo above, notable for EF 45-50%, global hypokinesis
-was briefly on NTG gtt on admission, now off
-cont heparin gtt for bridging (APLAb syndrome)
-cardiac cath today
Original Note:
Today's Communication/Plan
-
- Catheterization today.
- Wound care.
Assessment / Plan
Assessment / Plan
Assessment
Bianca Joy, age 67, was at the wound care center earlier this morning on 09-27-23 when she mentioned she was experiencing chest pain since yesterday and at present; she was sent to the emergency for further evaluation. The pain is
intermittent, sometimes persists for minutes and goes away, and other times persists for hours and goes away. Not alleviated or exacerbated with rest or activity, respectively. No other identifiable palliative factors. At worst, the pain is 5/10 but
usually 2/10. On admission, her blood work was notable for troponin 0.88. ECG and chest x-ray were unremarkable. She was admitted for further evaluation and management.
Impression and plan
Elevated troponin
Suspected qhj-QS-bksgcajtu myocardial infarction
- Troponin 0.881 on admission, peaked at 1.500.
- Echocardiogram from 09-28-23: global hypokinesis, with an LVEF of 45-50%.
- Holding warfarin; on heparin drip since INR <2.0.
- Hold nifedipine and furosemide; continue metoprolol.
- Admit to IVU; monitor on telemetry.
- NPO; planned catheterization today.
Antiphospholipid antibody syndrome
History of upper extremity deep vein thrombosis
- Warfarin bridged to heparin.
- Re-check INR.
Chronic venous stasis
Stage III right heel venous stasis wound
- Hold furosemide.
- Consult wound care; gets debridement at the center.
Essential hypertension
- Hold medications per above; continue metoprolol.
Allergic rhinitis
- Continue loratadine.
VTE prophylaxis
- Hold warfarin; now heparin drip.
- SCD.
Code status
- Full.
Anticipated Discharge: Within 24 hours
Subjective/Interval History
-
Date of Service: September 29, 2023
Objective Data
-
Labs:
Laboratory Results
09/28/23 09/29/23 09/29/23
21:23 04:29 07:25
WBC 10.1 19.1 H
Hgb 13.8 13.7
Hct 39.3 39.4
Plt Count 216 228
PT 13.9
INR 1.09
APTT 39.8 H 47.9 H Cancelled
Sodium 132 L
Potassium 4.2
Chloride 103
Carbon Dioxide 22
BUN 28 H
Creatinine 0.8
Glucose 118 H
Calcium 9.4
09/29/23
11:15
WBC
Hgb
Hct
Plt Count
PT
INR
APTT Pending
Sodium
Potassium
Chloride
Carbon Dioxide
BUN
Creatinine
Glucose
Calcium
Vital Signs:
Vital Signs
Temp Pulse Resp BP Pulse Ox
98 F 85 20 126/80 97
09/29/23 07:52 09/29/23 04:14 09/29/23 07:52 09/29/23 04:14 09/29/23 07:52
I&O
09/28/23 09/29/23 09/30/23
06:59 06:59 06:59
Intake Total 150 / 150
Balance 150 / 150
Review of Systems
-
History Source: Patient
Constitutional: Reports No Symptoms
EENT: Reports No Symptoms Reported
Respiratory: Reports No Symptoms
Cardiac: Reports No Symptoms
Abdomen/GI: Reports No Symptoms
Breast: Reports No Symptoms
Genitourinary: Reports No Symptoms
Musculoskeletal: Reports No Symptoms
Skin: Reports No Symptoms
Neuro: Reports No Symptoms
Endocrine: Reports No Symptoms
Hematologic / Lymphatic: Reports No Symptoms
Allergy / Immunology: Reports No Symptoms
Physical Exam
-
General: No Apparent Distress and Comfortable
HEENT: Normocephalic, Atraumatic, Moist Mucous Membranes and Anicteric
Respiratory: Clear to Auscultation and Non Labored Respirations
Cardiac: Regular Rhythm and S1/S2
GI: Soft, Nontender and Nondistended
Genito-urinary: No Costovertebral Tender
Musculoskeletal: No Clubbing, No Cyanosis and No Edema
Skin: Warm and IV Access / Catheter Site
Psych: Calm
[2023-09-29] MEDS: CLARITIN 10 MG PO (08:52)
[2023-09-29] MEDS: LOW STRENGTH ASPIRIN 324 MG PO (08:53)
[2023-09-29] MEDS: TYLENOL 1000 MG PO ×3 (08:53→22:17)
[2023-09-29] MEDS: LOPRESSOR 25 MG PO (08:54)
--- NOTE | 2023-09-29 09:53 | PTCARENOTE ---
sent in bed with warehouse laborer team to warehouse laborer. NPO before procedure. hep gtt removed. SR. OLEARY.
--- NOTE | 2023-09-29 10:05 | ITS.CL.CATH ---
[facility] - Catheterization
Cardiac Catheterization
Procedure Report:
LEFT HEART CATHETERIZATION
Date of Procedure: September 29, 2023
Referring: Jayden Garcia M.D.
PROCEDURES:
1. Left heart catheterization, coronary angiogram.
2. Ultrasound-guided access.
INDICATION: Concern for NSTEMI
ACCESS: Right Radial artery, 6 Fr sheath, under US guidance.
HEMODYNAMICS : (mmHg)
AO (s/d) : 106/63
LV (s/d) : 112/11
LVEDP : 16
CORONARY FINDINGS
DOMINANCE: Right
LEFT MAIN: The left main artery is a large-caliber vessel which gives rise to the left anterior descending artery and the left circumflex artery. There is minimal luminal irregularities.
LEFT ANTERIOR DESCENDING: The left anterior descending artery is a medium caliber vessel which gives rise to 2 major diagonal branches as it courses to the anterior interventricular groove and wraps around the apex. There is 40 to 50% ostial LAD
stenosis. Distal to apical LAD tapers into a small caliber vessel.
CIRCUMFLEX: The left circumflex artery is a medium to large caliber vessel which gives rise to 2 major obtuse marginal branches, a large left posterolateral branch and multiple small caliber posterolateral branches. There is minimal luminal
irregularities.
RIGHT CORONARY ARTERY: The right coronary artery is a medium caliber, dominant vessel which gives rise to the right posterior descending artery. There is mild diffuse disease in the mid RCA but otherwise minimal luminal irregularities.
SEDATION: 29 minutes of procedural sedation was utilized. An independent back office medical assistant was present to assist with and help manage the patient's level of consciousness and physiologic status.
RADIATION SUMMARY: Fluoro Time (min): 2.0, Dose (mGy): 208.85, DAP (Gy.cm2) : 12.14
Closure Device: Vascular band over right radial artery, 10 cc of air
CONCLUSIONS
1. Non-obstructive coronary artery disease.
2. Moderate disease at the ostial LAD.
3. Mildly elevated LVEDP at 16 mmHg
RECOMMENDATIONS
1. Continue goal-directed medical therapy for nonischemic cardiomyopathy. Repeat echocardiogram in 3 months on optimal goal-directed medical therapy.
2. Wean radial band per protocol.
3. Aggressive management of cardiovascular risk factors.
4. Strongly encourage complete smoking cessation.
5. Referral for outpatient cardiac rehab.
Copy to: Jayden Garcia
Hanna Gilmore MD, FACC, [facility]
--- NOTE | 2023-09-29 11:30 | PTCARENOTE ---
Assumed care of pt from prev nsg shift, AAOx3; Pt w/no c/o CP or SOB. Pt w/R radial band still in place; 3cc of air removed at 1130. No signs or symptoms of bleeding or hematoma from the site. Pt w/good R radial pulse. Pt's VS stable w/HR in the
60's & BP 116/68. Pt is SR on telemetry monitoring. Pt w/call loyd within reach & plan of care ongoing.
[2023-09-29] MEDS: LIPITOR 40 MG PO (19:40)
[2023-09-29] MEDS: COUMADIN 3 MG PO (19:41)
[2023-09-29] MEDS: COUMADIN 4 MG PO (19:41)
[2023-09-29] MEDS: TOPROL XL 25 MG PO (19:42)
[2023-09-29] MEDS: HEPARIN 25000 UNITS/250 ML IV (19:47)
[2023-09-29] MEDS: LIDOCAINE 4% PATCH 2 PATCH TOPICAL (22:18)
[2023-09-30 03:38] LABS: % Basophils 1.1 % (0-2); % Eosinophils 11.9 % (0-6); % Immature Granulocytes 0.4 % (0-0.5); % Monocytes 7.7 % (1.7-9.3); % Neutrophils 62.9 % (42.2-75.2); Absolute Basophils 0.1 10^3/uL (0-0.2); Absolute Eosinophils 1.3 10^3/uL (0-0.7); Absolute Lymphocytes 1.7 10^3/uL (1.2-3.4); Absolute Monocytes 0.8 10^3/uL (0.1-0.6); Absolute Neutrophils 6.8 10^3/uL (1.4-6.5); Hematocrit 38.7 % (37.0-47.0); Hemoglobin 13.1 g/dL (12.0-16.0); Mean Corp Hgb Conc. 33.9 g/dL (33.0-37.0); Mean Corpuscular Hgb 30.7 pg (27.0-31.0); Mean Corpuscular Volume 90.6 fL (81.0-99.0); Mean Platelet Volume 11.1 fL (7.4-10.4); Nucleated Red Blood Cells % 0 %; Platelet Count 230 10^3/uL (130-400); Red Blood Cell Count 4.27 10^6/uL (4.20-5.40); Red Cell Dist. Width 14.1 % (11.5-14.5); White Blood Cell Count 10.8 10^3/uL (4.8-10.8)
[2023-09-30 03:43] VITALS: BP 126/69
[2023-09-30 03:45] VITALS: BMI 24.6
[2023-09-30 03:55] LABS: INR 0.97; PT 12.9 Sec (11.4-14.6)
[2023-09-30 03:56] LABS: APTT 56.5 Sec (23.4-35.0)
[2023-09-30 04:01] LABS: Blood Urea Nitrogen 22 mg/dl (7-17); Calcium 9.1 mg/dl (8.4-10.2); Carbon Dioxide 26 mmol/L (22-30); Chloride 105 mmol/L (98-107); Estimated Creatinine Clearance 63 ml/min; Glucose 117 mg/dl (70-99); Potassium 4.5 mmol/L (3.5-5.1); Sodium 139 mmol/L (135-145); eGFR > 60.00
--- NOTE | 2023-09-30 04:39 | PTCARENOTE ---
Pt. remains in NSR with VSS. Heparin gtt restarted post cath per order and currently infusing at 12ml/hr. R radial cath site dry/intact with no complications noted. No complaints of chest pain. Plan of care discussed and patient verbalizes
understanding. Call loyd within reach.
[2023-09-30 06:56] VITALS: BP 133/70
[2023-09-30] MEDS: TYLENOL 1000 MG PO ×2 (09:15→16:50)
[2023-09-30] MEDS: TOPROL XL 25 MG PO (09:15)
[2023-09-30] MEDS: CLARITIN 10 MG PO (09:15)
[2023-09-30] MEDS: COZAAR 25 MG PO (09:16)
[2023-09-30] MEDS: LOW STRENGTH ASPIRIN 81 MG PO (09:16)
[2023-09-30] MEDS: LASIX 20 MG PO (09:16)
--- NOTE | 2023-09-30 10:00 | W.PN.HOSP.TC ---
Addendum entered and electronically signed by Lionel Campos MD 09/30/23 10:13:
I saw and evaluated the patient. I reviewed the resident�s note and agree with findings and plan as documented in the resident�s note.
Patient denies chest pain or shortness of breath.
Gen: NAD, AAOx3.
Eyes: EOMI, PERRLA, no scleral icterus.
Neck: supple.
CV: RRR, +S1/S2, no m/r/g.
Resp: CTAB, no rales, wheezes, or rhonchi.
Abd: +BS, soft, NT, ND
Skin: No rashes.
Neuro: CN 2-12 intact, non-focal.
Psych: Normal mood and affect.
ECG (read by me): NSR @ 88, normal axis/intervals, no acute ST/TW changes
Echo: Normal left ventricular chamber size. Mild concentric left ventricular
hypertrophy. Mildly reduced left ventricular systolic function. Global
hypokinesis. LV ejection fraction is 45-50% by [employer] method of discs.
Normal diastolic function.
Normal right ventricular size and function.
Normal atria.
Mitral annular calcification. Mild mitral regurgitation.
Trace tricuspid regurgitation. Estimated pulmonary artery pressure of 20-25
mmHg. Assuming a right atrial pressure of 8 mmHg.
Normal pericardium without effusion.
The IVC is mildly dilated.
No prior study for comparison.
Elevated trop due to acute NSTEMI (POA):
-Trop peaked at 1.500, then trended down
-echo above, notable for EF 45-50%, global hypokinesis
-was briefly on NTG gtt on admission, now off
-cont heparin gtt for bridging (APLAb syndrome)
-cardiac cath 09/29/23 without obstructive coronary artery disease
Antiphospholipid antibody syndrome:
-Continue heparin/Coumadin bridge
Original Note:
Today's Communication/Plan
-
- Follow coags.
- Heparin to warfarin bridging.
- Wound care.
Assessment / Plan
Assessment / Plan
Assessment
Bianca Joy, age 67, was at the wound care center earlier this morning on 09-27-23 when she mentioned she was experiencing chest pain since yesterday and at present; she was sent to the emergency for further evaluation. The pain is
intermittent, sometimes persists for minutes and goes away, and other times persists for hours and goes away. Not alleviated or exacerbated with rest or activity, respectively. No other identifiable palliative factors. At worst, the pain is 5/10 but
usually 2/10. On admission, her blood work was notable for troponin 0.88. ECG and chest x-ray were unremarkable. She was admitted for further evaluation and management.
Impression and plan
Elevated troponin
Suspected [id number] myocardial infarction
- Troponin 0.881 on admission, peaked at 1.500.
- Echocardiogram from 09-28-23: global hypokinesis with an LVEF of 45-50%.
- Continue bridging heparin to warfarin.
- Hold nifedipine and furosemide; continue metoprolol.
- Admit to IVU; monitor on telemetry.
- Left heart catheterization 09-29-23: non-obstructive coronary artery disease.
Antiphospholipid antibody syndrome
History of upper extremity deep vein thrombosis
- Heparin bridge to warfarin.
- Follow coags.
Chronic venous stasis
Stage III right heel venous stasis wound
- Hold furosemide.
- Consult wound care; gets debridement at the center.
Essential hypertension
- Hold medications per above; continue metoprolol and losartan.
Allergic rhinitis
- Continue loratadine.
VTE prophylaxis
- Heparin to warfarin bridging.
- SCD.
Code status
- Full.
Anticipated Discharge: 24 - 48 hours
Subjective/Interval History
-
Date of Service: September 30, 2023
Objective Data
-
Labs:
Laboratory Results
09/30/23 09/30/23 09/30/23
03:21 08:34 10:30
WBC 10.8
Hgb 13.1
Hct 38.7
Plt Count 230
PT 12.9 Pending
INR 0.97 Pending
APTT 56.5 H Pending
Sodium 139
Potassium 4.5
Chloride 105
Carbon Dioxide 26
BUN 22 H
Creatinine 0.8
Glucose 117 H
Calcium 9.1
Vital Signs:
Vital Signs
Temp Pulse Resp BP Pulse Ox
98.1 F 80 18 133/70 99
09/30/23 06:54 09/30/23 09:00 09/30/23 06:54 09/30/23 06:56 09/30/23 06:56
I&O
09/29/23 09/30/23 10/01/23
06:59 06:59 06:59
Intake Total 480 / 480
Balance 480 / 480
Review of Systems
-
History Source: Patient
Constitutional: Reports No Symptoms
EENT: Reports No Symptoms Reported
Respiratory: Reports No Symptoms
Cardiac: Reports No Symptoms
Abdomen/GI: Reports No Symptoms
Breast: Reports No Symptoms
Genitourinary: Reports No Symptoms
Musculoskeletal: Reports No Symptoms
Skin: Reports No Symptoms
Neuro: Reports No Symptoms
Endocrine: Reports No Symptoms
Hematologic / Lymphatic: Reports No Symptoms
Allergy / Immunology: Reports No Symptoms
Physical Exam
-
General: No Apparent Distress and Comfortable
HEENT: Normocephalic, Atraumatic, Moist Mucous Membranes and Anicteric
Respiratory: Clear to Auscultation and Non Labored Respirations
Cardiac: Regular Rhythm and S1/S2
GI: Soft, Nontender and Nondistended
Genito-urinary: No Costovertebral Tender
Musculoskeletal: No Clubbing, No Cyanosis and No Edema
Skin: Warm and IV Access / Catheter Site
Psych: Calm
[2023-09-30 10:04] VITALS: PULSE 88
--- NOTE | 2023-09-30 10:18 | W.PN.CARDCBS ---
Addendum entered and electronically signed by Ninoska Ponce DO 09/30/23 16:00:
I saw and examined the patient.
The Leather Shaver's note was reviewed and I agree with the note.
Comment: Patient seen and examined ambulating in room without symptoms. No chest pain or pressure. No shortness of breath. No palpitations.
General: No acute distress, AAOX3
Neck: Negative JVD
Heart: Regular, Negative S3 positive S1/S2, Negative S4, No murmur
Lungs: CTA b/l, negative wheezes/rales/rhonchi
Abd: Positive BS, NT/ND, neg rebound/rigidity/guarding
EXT: No edema. Right radial site intact.
Plan:
Presented with chest pain and elevated troponin, peak 1.5 with mildly reduced LV systolic function, estimated 45-50%
-Left heart catheterization with 40 to 50% ostial LAD disease but no obstructive coronary disease; no revascularization performed
-Continue aggressive risk factor reduction including lipid reduction.
-LDL 159 and patient started on atorvastatin 40 mg daily this admission.
-Smoking cessation advised repeatedly.
Mildly reduced LV systolic function without evidence of volume overload
-EF reduced at 45-50%. New to Toprol XL 25 mg BID and losartan 25 mg daily.
-Outpatient dose of nifedipine 60 mg stopped in favor of CM meds.
-Surveillance echo monitoring as an outpatient
-Patient has history of antiphospholipid antibody syndrome with history of upper extremity DVTs. Maintained on chronic anticoagulation with warfarin. INR goal is 2.5 to 3 according to patient. INRs previously managed using a home INR machine and
with the PCP, but her PCP retired and she has not checked an outpatient INR since June.
-Patient was given Vit K 2.5 mg PO x1 on 09/28/23. Usual dose of warfarin restarted 09/29/23 PM, but despite that her INR continues to drift down. Talked with the Coumadin clinic in [facility] office and we will manage patient's INRs for now in the name of
patient safety and lack of outpatient care. Will obtain a STAT INR at lab on Wednesday with results to me (vision mixer). [facility] Suspect it will take 1-2 weeks for INR to be back to therapeutic.
Will increase outpatient dose of warfarin to 8 mg daily while bridging with Lovenox 80 mg SQ q 12 hours.
-Appreciate help of CM.
-There are no cardiac indication for warfarin.
Discharge planning per primary including helping to facilitate outpatient internal medicine follow-up
Outpatient cardiac follow-up to be arranged
Original Note:
Today's Communication / Plan
-
Lovenox to warfarin bridge
Impression / Plan
-
PCP: previously followed with Dr. Oliver and waiting to be seen as a new patient at [facility]
Cardiology: Dr. Damon, last seen 2012
Impression:
Presented 09/27/2023 with chest pain
Elevated Troponin 0.8 initially, peak 1.50
Hyperglycemia
Elevated LFTs
Antiphospholipid antibody syndrome
Chronic warfarin, last outpatient INR 06/2023
h/o UE DVT
HTN
Hyperlipidemia
Echo 07/28/2022: EF 60%, no wall motion abnormality, normal RV size and function
Echo 09/28/2023: EF 45-50%, mild conc LVH, normal RV size and function, mild MR
Plan:
-Troponin peaked at 1.5. Patient had chest pain. Patient had nonobstructive CAD on cath with a 40-50% ostial LAD. EF down to 45%.
-Patient was not started on DAPT due to need for warfarin and lack of obstructive CAD on cath.
-LDL 159 and patient started on atorvastatin 40 mg daily this admission.
-Smoking cessation advised repeatedly.
-EF reduced at 45-50%. New to Toprol XL 25 mg BID and losartan 25 mg daily.
-Outpatient dose of nifedipine 60 mg stopped in favor of CM meds.
-Patient has history of antiphospholipid antibody syndrome with history of upper extremity DVTs. Maintained on chronic anticoagulation with warfarin. INR goal is 2.5 to 3 according to patient. INRs previously managed using a home INR machine and
with the PCP, but her PCP retired and she has not checked an outpatient INR since June.
-Patient was given Vit K 2.5 mg PO x1 on 09/28/23. Usual dose of warfarin restarted 09/29/23 PM, but despite that her INR continues to drift down. Talked with the Coumadin clinic in [facility] office and we will manage patient's INRs for now in the name of
patient safety and lack of outpatient care. Will obtain a STAT INR at lab on Wednesday with results to on-call sourcing intern. [facility] Suspect it will take 1-2 weeks for INR to be back to
therapeutic. Will increase outpatient dose of warfarin to 8 mg daily while bridging with Lovenox 80 mg SQ q 12 hours.
-Appreciate help of CM.
-There are no cardiac indication for warfarin.
-74 minutes in face to face time and in coordination of outpatient Lovenox to warfarin bridging protocol
HPI 09/27/2023:
Patient [facility] with chest pain and is now being admitted with an elevated Troponin and cardiology has been consulted. Patient says that chest pain started yesterday. Chest pain is substernal without radiation. Pain
is coming and going, but can last for minutes or hours at a time. Pain is at rest and no clear provocation with exertion. She has never had a pain like this before. No SOB. No LE pain or swelling. Her initial Troponin in the ER was 0.88. ECG without
acute changes as reviewed by me. She thinks NTG SL x1 in the ER made the pain feel better.
Progress Note - [employer] Associate
Subjective
Date of Service: September 30, 2023
Patient is anxious for d/c to home
Objective
Labs:
09/30/23 03:21
09/30/23 03:21
Labs
Hgb 13.1 g/dL (12.0-16.0) 09/30/23 03:21
Hct 38.7 % (37.0-47.0) 09/30/23 03:21
Plt Count 230 10^3/uL (130-400) 09/30/23 03:21
PT 12.9 Sec (11.4-14.6) 09/30/23 03:21
INR 0.97 09/30/23 03:21
APTT 56.5 Sec (23.4-35.0) H 09/30/23 03:21
Sodium 139 mmol/L (135-145) 09/30/23 03:21
Potassium 4.5 mmol/L (3.5-5.1) 09/30/23 03:21
BUN 22 mg/dl (7-17) H 09/30/23 03:21
Creatinine 0.8 mg/dL (0.6-1.0) 09/30/23 03:21
Glucose 117 mg/dl (70-99) H 09/30/23 03:21
Troponins
09/27/23 09/27/23 09/27/23
14:50 18:18 23:05
Troponin I 0.881 H* 1.150 H* D 1.450 H* D
09/28/23 09/28/23
04:50 10:55
Troponin I 1.500 H* 1.260 H*
Vital Signs and I&O:
Vital Signs
Temp Pulse Resp BP Pulse Ox
98.1 F 80 18 133/70 99
09/30/23 06:54 09/30/23 09:00 09/30/23 06:54 09/30/23 06:56 09/30/23 06:56
Vital Signs
Temp Pulse Resp BP Pulse Ox
98.1 F 80 18 133/70 99
09/30/23 06:54 09/30/23 09:00 09/30/23 06:54 09/30/23 06:56 09/30/23 06:56
Intake & Output
09/28/23 09/29/23 09/30/23 10/01/23
06:59 06:59 06:59 06:59
Intake Total 150 / 150 480 / 480
Balance 150 / 150 480 / 480
Physical Exam
Physical Exam
GEN: NAD, AAOx3
HEENT: EOMI
LUNGS: No audible wheeze
CV: SR on tele
ABD: ND
EXT: No edema B/L
NEURO: Gross non-focal
SKIN: No rash
[2023-09-30 11:36] VITALS: BP 115/78
[2023-09-30 12:20] LABS: INR 1.01; PT 13.3 Sec (11.4-14.6)
[2023-09-30 12:22] LABS: APTT 67.2 Sec (23.4-35.0)
--- NOTE | 2023-09-30 13:08 | CM ---
Reviewed chart. Met with Mrs. Joy to review discharge plans. She states she is hoping she will be able to go home soon. She states she maybe able to go home on Enoxparin Sodium. Telephone call to [facility] to see if they have 7 syringes of 80 mg
Lovenox. [facility] states they have ten syringes. She will need seven. Telephone call to [facility] to check her co-pay for Lovenox. Her co-pay would be $5.00. Reviewed co-pay with her. She is agreeable to the co-pay. Prior to admission she
resides alone in a three story home with one step to enter. She has a full flight of steps to get to bedroom/full bathroom. She has a powder room on the first. Prior to admission she was independent with ambulation and adls. She does not have any
DME in the home. She has a prescription plan and uses [facility]. She [facility]. Medical work-up in progress. The discharge plan is to return home with resumption of the [facility] when medically stable.
--- NOTE | 2023-09-30 16:38 | W.DCSUMMARY ---
Addendum entered and electronically signed by Lionel Campos MD 10/01/23 08:19:
Total time spent on d/c = 34 min. This included today's physical exam, progress note, review of laboratory and diagnostic data, preparation of discharge documents and prescriptions, and discussions about the pt's hospital course and discharge plan
with the patient and other medical information officer involved in the patient's care.
Read, reviewed, and agree. See same day progress note for additional details.
Original Note:
Discharge Summary
Discharge Data
Date of Admission: 09/27/23
Date of Discharge: 09/30/23
-
Pending Results: No
Hospital Course
Primary discharge diagnosis
* [id number] myocardial infarction
Secondary discharge diagnoses
- Mildly reduced left ventricular systolic function without evidence of volume overload
- Antiphospholipid antibody syndrome
- History of upper extremity deep vein thrombosis
- Chronic venous stasis
- Stage III right heel venous stasis wound
- Essential hypertension
- Allergic rhinitis
Hospital course
Bianca Joy, age 67, was at the [facility] care center on the morning on 09-27-23 when she mentioned she was experiencing chest pain since yesterday and at present; she was sent to the emergency where she was noted to have troponin elevation with
normal ECG. She was started on a nitroglycerine drip and her symptoms resolved with that. She was admitted for further evaluation and management. Her medical history is pertinent for antiphospholipid antibody syndrome on long-term warfarin. She was
bridged from warfarin to heparin; underwent left heart catheterization and an echocardiogram. The former was notable for non-obstructive coronary artery disease and the latter for global hypokinesia with left ventricular ejection fraction of 45-50%.
Her symptoms did not reoccur - her vitals and blood work remained stable throughout the visit.
She will be discharged home on a heparin to warfarin bridge with enoxaparin; she has done this in the past. Bridging was explained by several providers. She was provided with the following written instructions on that, as well as contact details for
follow-up: Increase warfarin dose to 8 mg (two 4 mg tablets) once a day. Inject yourself with Lovenox 80 mg subcutaneous syringe every 12 hours until INR is at least greater than 2. Check STAT INR at [facility] outpatient lab this Wednesday,
10-02-23. The lab is open until noon on Wednesday, please go by then. About 2 hours later, call the cardiology office at [phone] to reach the answering service and leave a message asking for a call back about your INR result to get instructions
for dosing. Strongly emphasized the importance of quitting smoking, dietary modifications, and adherence to new medications post-discharge for further disease prevention. Outpatient follow-up with cardiology and primary, both within 1 week.
Follow-up echocardiogram as an outpatient, per cardiology.
Discharge Plan
-
Patient Disposition: Home (Routine Discharge)
Discharge Diagnosis/Procedures: [id number] myocardial infarction
Condition: Good
Diet: Low Cholesterol and Low Sodium
Activity: Other activity
Driving Restrictions: No driving for 24 hours
Bathing Restrictions: OK to Shower
Specialty Instructions: Weigh Daily- Call MD for wt gain/loss 3 lbs overnight/5 lbs in 1 week
Activity Restrictions/Additional Instructions:
Wound Care Instructions
R lateral ankle/heel and L 2nd toe: Clean with mild soap and water, skin prep periwound, smear of honey gel, adaptic, 2x2 gauze or dry dressing, change daily and prn drainage
Pad anterior ankle under mariaelena wrap knee high daily as tolerated, remove at bedtime
R leg elevation when sitting
Follow up at wound care center call for an appointment.
Instructions: Quitting smoking
Stand Alone Forms: DC Instructions- Cath/EP Lab
Referrals:
Barbara Oliver MD [Family Provider] - in less than 1 week
Paulo Damon MD [Active] - in less than 1 week
Additional Discharge Medication Instructions: -STOP nifedipine
-Note decreased dose Lasix (furosemide)
-Increase warfarin dose to 8 mg (two 4 mg tablets) once a day
-Inject yourself with Lovenox 80 mg subcutaneous syringe every 12 hours until INR is at least greater than 2.
-Check a STAT INR at [facility] outpatient lab this 10/02/23. The lab is open until noon on Wednesday, please go by then. About 2 hours later, call the cardiology office at [phone] to reach the answering service and leave a
message asking for a call back about your INR result to get instructions for dosing.
Prescriptions:
New
atorvastatin 40 mg Tablet
40 mg PO QPM Qty: 30 11RF
losartan 25 mg Tablet
25 mg PO DAILY Qty: 30 11RF
aspirin 81 mg Tablet,Chewable
81 mg PO DAILY Qty: 30 0RF
furosemide 20 mg Tablet
20 mg PO DAILY Qty: 30 11RF
metoprolol succinate 25 mg Tablet Extended Release 24 Hr
25 mg PO BID Qty: 30 11RF
warfarin 4 mg tablet
8 mg PO DAILY Qty: 60 0RF
enoxaparin 80 mg/0.8 mL syringe
80 mg SC Q12H Qty: 8 2RF
Continued
loratadine [Claritin] 10 mg Tablet
10 mg PO DAILY
Discontinued
warfarin 1 mg Tablet
6 mg PO TU@1900
furosemide [Lasix] 40 mg Tablet
40 mg PO DAILY
nifedipine 60 mg Tablet Extended Release
60 mg PO DAILY
warfarin 1 mg tablet
7 mg PO SUMOWETHFRSA@1900
Discharge Orders:
Discharge Patient (As Directed); Ordered 09/30/23
Ordered By: Carlos Aleman
Care Plan Goals
Care Plan Goals:
Problem: Readiness for enhanced knowledge related to diagnosis and treatment plan
Goal: Understand your diagnosis and treatment plan needs, including medications if applicable.
Instructions: Know your diagnosis, underlying causes and treatment plan options, including medications if applicable. Consult with your health care team to learn about your diagnosis and treatment plan, including medications if applicable.
Discharge Date and Time
Print Language: GREENLAND[place]
[2023-09-30] MEDS: LIPITOR 40 MG PO (16:51)
[2023-09-30 17:20] VITALS: BP 103/88
== END 2023-09-30 18:08 | disposition home or self-care (01) | DRG 281 ==
LOC: IVU 18:07
PROVIDERS: Internal Medicine Interventional Cardiology; Nurse Practitioner; Nurse Practitioner Family; Physician Assistant; Student in an Organized Health Care Education/Training Program; ADMITTING PHYSICIAN Internal Medicine; CONSULT PHYSICIAN Internal Medicine Cardiovascular Disease; EMERGENCY PHYSICIAN Emergency Medicine; FAMILY PHYSICIAN Internal Medicine
PROC: B2151ZZ Fluoroscopy of Left Heart using Low Osmolar Contrast (ICD-10-PCS; 2023-09-29)
PROC: B2111ZZ Fluoroscopy of Multiple Coronary Arteries using Low Osmolar Contrast (ICD-10-PCS; 2023-09-29)
PROC: 4A023N7 Measurement of Cardiac Sampling and Pressure, Left Heart, Percutaneous Approach (ICD-10-PCS; 2023-09-29)
DX: I21.4 Non-ST elevation (NSTEMI) myocardial infarction (principal); D68.61 Antiphospholipid syndrome; I42.8 Other cardiomyopathies; I10 Essential (primary) hypertension; F17.200 Nicotine dependence, unspecified, uncomplicated; E78.5 Hyperlipidemia, unspecified; R73.9 Hyperglycemia, unspecified; J30.9 Allergic rhinitis, unspecified; I87.8 Other specified disorders of veins; Z63.8 Other specified problems related to primary support group; Z91.048 Other nonmedicinal substance allergy status; Z79.01 Long term (current) use of anticoagulants; Z86.718 Personal history of other venous thrombosis and embolism
CPT/HCPCS: 71045; 80048; 80053; 80061; 83036; 84484; 85025; 85027; 85610; 85730; 86850; 86870; 86900; 86901; 93005; 93306; 93458; 96365; 97161; 97165; 99152; 99153; 99214; 99291; 99406; C1894; Q9967

== ENCOUNTER → 2023-10-02 11:48 | Outpatient (REF) | payer MEDICARE, OTHER, SELFPAY ==
[2023-10-02 12:41] LABS: INR 1.11; PT 14.2 Sec (11.4-14.6)
== END ==
LOC: REG 11:48
PROVIDERS: ATTENDING PHYSICIAN Internal Medicine Cardiovascular Disease
DX: Z79.01 Long term (current) use of anticoagulants (principal)
CPT/HCPCS: 36415; 85610

== ENCOUNTER → 2023-10-04 12:24 | Outpatient (REF) | payer MEDICARE, OTHER, SELFPAY ==
[2023-10-04 13:59] LABS: INR 1.68; PT 19.6 Sec (11.4-14.6)
[2023-10-04 14:01] LABS: APTT 64.8 Sec (23.4-35.0)
== END ==
LOC: REG 12:24
PROVIDERS: ATTENDING PHYSICIAN Internal Medicine; FAMILY PHYSICIAN Family Medicine
DX: Z79.01 Long term (current) use of anticoagulants (principal)
CPT/HCPCS: 36415; 85610; 85730

== ENCOUNTER → 2023-10-07 13:47 | Outpatient (REF) | payer MEDICARE, OTHER, SELFPAY ==
[2023-10-07 16:14] LABS: INR 2.79; PT 29.8 Sec (11.4-14.6)
== END ==
LOC: HWLAB 13:47
PROVIDERS: ATTENDING PHYSICIAN Internal Medicine Cardiovascular Disease; FAMILY PHYSICIAN Family Medicine
DX: Z79.01 Long term (current) use of anticoagulants (principal); D68.61 Antiphospholipid syndrome
CPT/HCPCS: 36415; 85610

== ENCOUNTER → 2023-10-14 11:47 | Outpatient (REF) | payer MEDICARE, OTHER, SELFPAY ==
[2023-10-14 16:06] LABS: INR 2.75; PT 29.5 Sec (11.4-14.6)
== END ==
LOC: HWLAB 11:47
PROVIDERS: ATTENDING PHYSICIAN Internal Medicine Cardiovascular Disease; FAMILY PHYSICIAN Family Medicine
DX: D68.61 Antiphospholipid syndrome (principal); Z79.01 Long term (current) use of anticoagulants
CPT/HCPCS: 36415; 85610

== ENCOUNTER → 2023-10-25 11:11 | Outpatient (REF) | payer MEDICARE, OTHER, SELFPAY | LOC: WOUND 11:11 | PROVIDERS: ATTENDING PHYSICIAN Surgery; FAMILY PHYSICIAN Family Medicine | DX: I87.311 Chronic venous hypertension (idiopathic) with ulcer of right lower extremity (principal); L97.522 Non-pressure chronic ulcer of other part of left foot with fat layer exposed; L97.412 Non-pressure chronic ulcer of right heel and midfoot with fat layer exposed; R00.0 Tachycardia, unspecified; I87.2 Venous insufficiency (chronic) (peripheral); D68.61 Antiphospholipid syndrome; Q85.9 Phakomatosis, unspecified; I73.00 Raynaud's syndrome without gangrene | CPT/HCPCS: 11042 ==

== ENCOUNTER → 2023-10-28 11:40 | Outpatient (REF) | payer MEDICARE, OTHER, SELFPAY ==
[2023-10-28 15:52] LABS: INR 2.69
== END ==
LOC: HWLAB 11:40
PROVIDERS: ATTENDING PHYSICIAN Internal Medicine Cardiovascular Disease; FAMILY PHYSICIAN Family Medicine
DX: D68.61 Antiphospholipid syndrome (principal); Z79.01 Long term (current) use of anticoagulants
CPT/HCPCS: 36415; 85610

== ENCOUNTER → 2023-11-01 13:45 | Outpatient (REF) | payer MEDICARE, OTHER, SELFPAY | LOC: WOUND 13:45 | PROVIDERS: ATTENDING PHYSICIAN Surgery; FAMILY PHYSICIAN Family Medicine | DX: I87.311 Chronic venous hypertension (idiopathic) with ulcer of right lower extremity (principal); L97.522 Non-pressure chronic ulcer of other part of left foot with fat layer exposed; L97.412 Non-pressure chronic ulcer of right heel and midfoot with fat layer exposed; R00.0 Tachycardia, unspecified; I87.2 Venous insufficiency (chronic) (peripheral); D68.61 Antiphospholipid syndrome; I73.00 Raynaud's syndrome without gangrene; Q85.9 Phakomatosis, unspecified; Z79.01 Long term (current) use of anticoagulants | CPT/HCPCS: 99213 ==

== ENCOUNTER → 2023-11-16 13:14 | Outpatient (REF) | payer MEDICARE, OTHER, SELFPAY | LOC: WOUND 13:14 | PROVIDERS: ATTENDING PHYSICIAN Surgery; FAMILY PHYSICIAN Family Medicine | DX: I87.311 Chronic venous hypertension (idiopathic) with ulcer of right lower extremity (principal); L97.522 Non-pressure chronic ulcer of other part of left foot with fat layer exposed; L97.412 Non-pressure chronic ulcer of right heel and midfoot with fat layer exposed; R00.0 Tachycardia, unspecified; I87.2 Venous insufficiency (chronic) (peripheral); D68.61 Antiphospholipid syndrome; I73.00 Raynaud's syndrome without gangrene; Q85.9 Phakomatosis, unspecified; Z79.01 Long term (current) use of anticoagulants | CPT/HCPCS: 99212 ==

== ENCOUNTER 2023-12-06 11:53 | Outpatient (RCR) | payer MEDICARE, OTHER, SELFPAY | END 2023-12-06 23:59 | disposition home or self-care (01) | LOC: CRHB 11:53 | PROVIDERS: ATTENDING PHYSICIAN Internal Medicine Cardiovascular Disease; FAMILY PHYSICIAN Family Medicine | DX: I25.10 Atherosclerotic heart disease of native coronary artery without angina pectoris (principal); I25.2 Old myocardial infarction | CPT/HCPCS: G0422; G0423 ==

== ENCOUNTER → 2023-12-06 12:40 | Outpatient (REF) | payer MEDICARE, OTHER, SELFPAY ==
[2023-12-06 15:56] LABS: % Basophils 2.4 % (0-2); % Eosinophils 5.1 % (0-6); % Immature Granulocytes 0.4 % (0-0.5); % Lymphocytes 23.9 % (20.5-51.1); % Monocytes 8.2 % (1.7-9.3); Absolute Basophils 0.2 10^3/uL (0-0.2); Absolute Eosinophils 0.4 10^3/uL (0-0.7); Absolute Lymphocytes 1.7 10^3/uL (1.2-3.4); Absolute Monocytes 0.6 10^3/uL (0.1-0.6); Absolute Neutrophils 4.3 10^3/uL (1.4-6.5); Hematocrit 41.2 % (37.0-47.0); Hemoglobin 13.5 g/dL (12.0-16.0); Mean Corp Hgb Conc. 32.8 g/dL (33.0-37.0); Mean Corpuscular Hgb 29.5 pg (27.0-31.0); Mean Platelet Volume 11.9 fL (7.4-10.4); Nucleated Red Blood Cells % 0 %; Platelet Count 330 10^3/uL (130-400); Red Blood Cell Count 4.58 10^6/uL (4.20-5.40); Red Cell Dist. Width 15.4 % (11.5-14.5); White Blood Cell Count 7.2 10^3/uL (4.8-10.8)
[2023-12-06 16:08] LABS: PT 32.7 Sec (11.4-14.6)
[2023-12-06 16:38] LABS: TSH Reflex To Free T4 1.37 uIU/ml (0.47-4.68)
[2023-12-06 17:46] LABS: ALT (SGPT) 543 U/L (0-35); AST (SGOT) 408 U/L (14-36); Albumin 3.9 g/dl (3.5-5.0); Alkaline Phosphatase 518 U/L (38-126); Blood Urea Nitrogen 25 mg/dl (7-17); Calcium 9.2 mg/dl (8.4-10.2); Carbon Dioxide 21 mmol/L (22-30); Chloride 104 mmol/L (98-107); Glucose 102 mg/dl (70-99); HDL Cholesterol 54 mg/dl; LDL Cholesterol, Calculated 94 mg/dl; Potassium 4.9 mmol/L (3.5-5.1); Sodium 137 mmol/L (135-145); Total Bilirubin 1.3 mg/dl (0.2-1.3); Total Cholesterol 164 mg/dl (50-199); Total Protein 7.6 g/dl (6.3-8.2); Triglyceride 81 mg/dl (10-149); Very Low Density Lipoprotein 16 mg/dl (0-30); eGFR > 60.00
[2023-12-06 18:19] LABS: Urine Albumin Trace (Neg - Trace); Urine Bilirubin 1+ (Negative); Urine Character Clear (Clear); Urine Color Yellow; Urine Glucose Negative (Negative); Urine Ketone Negative (Negative); Urine Leukocyte Trace (Negative); Urine Nitrite Negative (Negative); Urine Occult Blood Negative (Negative); Urine Specific Gravity 1.015 (<1.030); Urine Urobilinogen 2+ (Neg - 1+)
[2023-12-06 19:05] LABS: Urine Bacteria Few (Negative); Urine Mucus Moderate; Urine Red Blood Cell 0-2 /HPF (0-2); Urine Squamous Cell >30 /LPF (Few)
== END ==
LOC: HWLAB 12:40
PROVIDERS: ATTENDING PHYSICIAN Family Medicine; REFERRING PHYSICIAN Physician Assistant Medical
DX: Z79.01 Long term (current) use of anticoagulants (principal); D68.61 Antiphospholipid syndrome; I73.00 Raynaud's syndrome without gangrene; I10 Essential (primary) hypertension; Z00.01 Encounter for general adult medical examination with abnormal findings; J44.9 Chronic obstructive pulmonary disease, unspecified; F17.200 Nicotine dependence, unspecified, uncomplicated; E78.2 Mixed hyperlipidemia; I21.4 Non-ST elevation (NSTEMI) myocardial infarction
CPT/HCPCS: 36415; 80053; 80061; 81003; 81015; 84443; 85025; 85610

== ENCOUNTER → 2023-12-07 07:23 | Outpatient (REF) | payer MEDICARE, OTHER, SELFPAY ==
[2023-12-07 10:13] LABS: ALT (SGPT) 571 U/L (0-35); AST (SGOT) 429 U/L (14-36); Alkaline Phosphatase 549 U/L (38-126)
== END ==
LOC: HWLAB 07:23
PROVIDERS: ATTENDING PHYSICIAN Internal Medicine
DX: R74.01 Elevation of levels of liver transaminase levels (principal); R74.8 Abnormal levels of other serum enzymes
CPT/HCPCS: 36415; 84075; 84450; 84460

== ENCOUNTER → 2023-12-08 14:12 | Outpatient (REF) | payer MEDICARE, OTHER, SELFPAY | LOC: HWRAD 14:12 | PROVIDERS: ATTENDING PHYSICIAN Internal Medicine | DX: R74.01 Elevation of levels of liver transaminase levels (principal); R74.8 Abnormal levels of other serum enzymes | CPT/HCPCS: 74177; Q9967 ==

== ENCOUNTER → 2023-12-13 07:44 | Outpatient (REF) | payer MEDICARE, OTHER, SELFPAY ==
[2023-12-13 09:56] LABS: INR 1.95
[2023-12-13 18:49] LABS: Hepatitis B Surface Antigen Negative (Negative)
[2023-12-13 19:06] LABS: Hepatitis B Surface Antibody Negative; Hepatitis C Antibody Negative (Negative)
[2023-12-13 20:06] LABS: Hepatitis A IgM Antibody Negative (Negative)
== END ==
LOC: HWLAB 07:44
PROVIDERS: ATTENDING PHYSICIAN Internal Medicine; FAMILY PHYSICIAN Family Medicine
DX: D68.61 Antiphospholipid syndrome (principal); Z79.01 Long term (current) use of anticoagulants; R74.8 Abnormal levels of other serum enzymes
CPT/HCPCS: 36415; 85610; 86706; 86709; 86803; 87340

== ENCOUNTER → 2023-12-21 10:36 | Outpatient (REF) | payer MEDICARE, OTHER, SELFPAY ==
[2023-12-21 12:27] LABS: INR 1.24; PT 15.9 Sec (11.4-14.6)
[2023-12-21 12:55] LABS: ALT (SGPT) 316 U/L (0-35); AST (SGOT) 197 U/L (14-36); Albumin 3.8 g/dl (3.5-5.0); Alkaline Phosphatase 352 U/L (38-126); Blood Urea Nitrogen 25 mg/dl (7-17); Calcium 8.8 mg/dl (8.4-10.2); Carbon Dioxide 22 mmol/L (22-30); Chloride 107 mmol/L (98-107); Glucose 97 mg/dl (70-99); Iron 120 ug/dl (37-170); Potassium 4.5 mmol/L (3.5-5.1); Sodium 138 mmol/L (135-145); Total Bilirubin 0.8 mg/dl (0.2-1.3); Total Protein 7.4 g/dl (6.3-8.2); eGFR > 60.00
[2023-12-21 12:59] LABS: GGTP 566 U/L (12-43)
[2023-12-21 13:04] LABS: Percent Saturation 32 % (20-50); Total Iron Binding Capacity 364 ug/dl (265-497)
[2023-12-21 13:24] LABS: Monotest Positive (Negative)
[2023-12-24 00:35] LABS: ANA, IgG Reflex to HEp-2 Detected (None Detected)
[2023-12-24 04:35] LABS: F-Actin Antibody IgG 19 Units (0-19); Mitochondrial M2 Ab, IgG 101.6 Units (0.0-24.9)
== END ==
LOC: HWLAB 10:36
PROVIDERS: ATTENDING PHYSICIAN Physician Assistant Medical; FAMILY PHYSICIAN Family Medicine; REFERRING PHYSICIAN Internal Medicine Gastroenterology
DX: I25.10 Atherosclerotic heart disease of native coronary artery without angina pectoris (principal); I25.5 Ischemic cardiomyopathy; R79.89 Other specified abnormal findings of blood chemistry; Z79.01 Long term (current) use of anticoagulants
CPT/HCPCS: 36415; 80053; 82103; 82390; 82728; 82977; 83540; 83550; 85610; 86015; 86038; 86308; 86381

== ENCOUNTER 2023-12-22 11:28 | Outpatient (RCR) | payer MEDICARE, OTHER, SELFPAY | END 2023-12-22 23:59 | disposition home or self-care (01) | LOC: CRHB 11:28 | PROVIDERS: ATTENDING PHYSICIAN Internal Medicine Cardiovascular Disease; FAMILY PHYSICIAN Family Medicine | DX: I21.4 Non-ST elevation (NSTEMI) myocardial infarction (principal) | CPT/HCPCS: 93797; 93798; G0422; G0423 ==

== ENCOUNTER 2024-02-07 11:45 | Outpatient (RCR) | payer MEDICARE, OTHER, SELFPAY | END 2024-02-07 23:59 | disposition home or self-care (01) | LOC: CRHB 11:45 | PROVIDERS: ATTENDING PHYSICIAN Internal Medicine Cardiovascular Disease; FAMILY PHYSICIAN Family Medicine | DX: I25.10 Atherosclerotic heart disease of native coronary artery without angina pectoris (principal); R07.89 Other chest pain; I25.2 Old myocardial infarction; R79.89 Other specified abnormal findings of blood chemistry; I21.4 Non-ST elevation (NSTEMI) myocardial infarction | CPT/HCPCS: G0422; G0423 ==

== ENCOUNTER → 2024-02-15 11:21 | Outpatient (REF) | payer MEDICARE, OTHER, SELFPAY ==
[2024-02-15 16:33] LABS: ALT (SGPT) 82 U/L (0-35); AST (SGOT) 60 U/L (14-36); Albumin 3.9 g/dl (3.5-5.0); Alkaline Phosphatase 237 U/L (38-126); Blood Urea Nitrogen 20 mg/dl (7-17); Calcium 9.3 mg/dl (8.4-10.2); Carbon Dioxide 27 mmol/L (22-30); Chloride 105 mmol/L (98-107); Glucose 93 mg/dl (70-99); Potassium 4.3 mmol/L (3.5-5.1); Sodium 138 mmol/L (135-145); Total Bilirubin 0.6 mg/dl (0.2-1.3); Total Protein 7.4 g/dl (6.3-8.2); eGFR > 60.00
== END ==
LOC: HWLAB 11:21
PROVIDERS: ATTENDING PHYSICIAN Internal Medicine Gastroenterology; FAMILY PHYSICIAN Family Medicine
DX: Z79.01 Long term (current) use of anticoagulants (principal); E78.2 Mixed hyperlipidemia
CPT/HCPCS: 36415; 80053

== ENCOUNTER → 2024-03-02 14:29 | Outpatient (REF) | payer MEDICARE, OTHER, SELFPAY | LOC: HWWDC 14:29 | PROVIDERS: ATTENDING PHYSICIAN Family Medicine | DX: Z12.31 Encounter for screening mammogram for malignant neoplasm of breast (principal) | CPT/HCPCS: 77063; 77067 ==

== ENCOUNTER 2024-03-10 11:34 | Outpatient (RCR) | payer MEDICARE, OTHER, SELFPAY | END 2024-03-10 23:59 | disposition home or self-care (01) | LOC: CRHB 11:34 | PROVIDERS: ATTENDING PHYSICIAN Internal Medicine Cardiovascular Disease; FAMILY PHYSICIAN Family Medicine | DX: I25.2 Old myocardial infarction (principal); R07.89 Other chest pain; R79.89 Other specified abnormal findings of blood chemistry; I25.10 Atherosclerotic heart disease of native coronary artery without angina pectoris | CPT/HCPCS: G0422; G0423 ==

== ENCOUNTER 2024-03-16 06:17 | Day surgery (SDC) | payer MEDICARE, OTHER, SELFPAY | END 2024-03-16 12:22 | disposition home or self-care (01) | LOC: GI 06:17 | PROVIDERS: ATTENDING PHYSICIAN Internal Medicine Gastroenterology; FAMILY PHYSICIAN Family Medicine | DX: Z12.11 Encounter for screening for malignant neoplasm of colon (principal); K64.8 Other hemorrhoids; K57.30 Diverticulosis of large intestine without perforation or abscess without bleeding; K63.5 Polyp of colon; Z86.0100 Personal history of colon polyps, unspecified | CPT/HCPCS: 45385; 45380; 88305 ==

== ENCOUNTER → 2024-03-20 09:25 | Outpatient (REF) | payer MEDICARE, OTHER, SELFPAY ==
[2024-03-20 11:42] LABS: INR 1.19; PT 15.4 Sec (11.4-14.6)
== END ==
LOC: HWLAB 09:25
PROVIDERS: ATTENDING PHYSICIAN Internal Medicine Hematology & Oncology; FAMILY PHYSICIAN Family Medicine
DX: D68.61 Antiphospholipid syndrome (principal)
CPT/HCPCS: 36415; 85610

== ENCOUNTER 2024-03-24 15:32 | Outpatient (RCR) | payer MEDICARE, OTHER, SELFPAY | END 2024-03-24 15:35 | disposition home or self-care (01) | LOC: CRHB 15:32 | PROVIDERS: ATTENDING PHYSICIAN Internal Medicine Cardiovascular Disease; FAMILY PHYSICIAN Family Medicine | DX: I25.2 Old myocardial infarction (principal); I21.4 Non-ST elevation (NSTEMI) myocardial infarction (principal); R07.89 Other chest pain; R79.89 Other specified abnormal findings of blood chemistry | CPT/HCPCS: G0422; G0423 ==

== ENCOUNTER → 2024-03-27 12:26 | Outpatient (REF) | payer MEDICARE, OTHER, SELFPAY ==
[2024-03-27 16:04] LABS: INR 1.49; PT 18.2 Sec (11.4-14.6)
== END ==
LOC: HWLAB 12:26
PROVIDERS: ATTENDING PHYSICIAN Internal Medicine Hematology & Oncology; FAMILY PHYSICIAN Family Medicine
DX: D68.61 Antiphospholipid syndrome (principal)
CPT/HCPCS: 36415; 85610

== ENCOUNTER → 2024-03-30 12:03 | Outpatient (REF) | payer MEDICARE, OTHER, SELFPAY ==
[2024-03-30 16:30] LABS: INR 1.49; PT 18.6 Sec (11.4-14.6)
== END ==
LOC: HWLAB 12:03
PROVIDERS: ATTENDING PHYSICIAN Internal Medicine Hematology & Oncology; FAMILY PHYSICIAN Family Medicine
DX: D68.61 Antiphospholipid syndrome (principal)
CPT/HCPCS: 36415; 85610

== ENCOUNTER → 2024-04-03 12:11 | Outpatient (REF) | payer MEDICARE, OTHER, SELFPAY ==
[2024-04-03 15:33] LABS: INR 1.89; PT 21.9 Sec (11.4-14.6)
== END ==
LOC: HWRCS 12:11
PROVIDERS: ATTENDING PHYSICIAN Internal Medicine Cardiovascular Disease; FAMILY PHYSICIAN Family Medicine; REFERRING PHYSICIAN Internal Medicine Hematology & Oncology
DX: I25.5 Ischemic cardiomyopathy (principal); D68.61 Antiphospholipid syndrome
CPT/HCPCS: 36415; 85610; 93306

== ENCOUNTER → 2024-04-05 11:51 | Outpatient (REF) | payer MEDICARE, OTHER, SELFPAY ==
[2024-04-05 14:01] LABS: INR 2.95; PT 31.1 Sec (11.4-14.6)
== END ==
LOC: HWLAB 11:51
PROVIDERS: ATTENDING PHYSICIAN Internal Medicine Hematology & Oncology; FAMILY PHYSICIAN Family Medicine
DX: D68.61 Antiphospholipid syndrome (principal)
CPT/HCPCS: 36415; 85610

== ENCOUNTER → 2024-04-10 11:23 | Outpatient (REF) | payer MEDICARE, OTHER, SELFPAY ==
[2024-04-10 15:39] LABS: PT 22.8 Sec (11.4-14.6)
== END ==
LOC: HWLAB 11:23
PROVIDERS: ATTENDING PHYSICIAN Internal Medicine Hematology & Oncology; FAMILY PHYSICIAN Family Medicine
DX: D68.61 Antiphospholipid syndrome (principal)
CPT/HCPCS: 36415; 85610

== ENCOUNTER → 2024-05-05 13:23 | Outpatient (REF) | payer MEDICARE, OTHER, SELFPAY | LOC: HWRAD 13:23 | PROVIDERS: ATTENDING PHYSICIAN Family Medicine; REFERRING PHYSICIAN Internal Medicine Gastroenterology | DX: Z79.01 Long term (current) use of anticoagulants (principal); D68.61 Antiphospholipid syndrome; Z23 Encounter for immunization; M81.0 Age-related osteoporosis without current pathological fracture | CPT/HCPCS: 77080 ==

== ENCOUNTER → 2024-06-05 10:44 | Outpatient (REF) | payer MEDICARE, OTHER, SELFPAY | LOC: HWRAD 10:44 | PROVIDERS: ATTENDING PHYSICIAN Family Medicine | DX: F17.210 Nicotine dependence, cigarettes, uncomplicated (principal) | CPT/HCPCS: 71271 ==

== ENCOUNTER → 2024-06-08 10:31 | Outpatient (REF) | payer MEDICARE, OTHER, SELFPAY ==
[2024-06-08 12:23] LABS: INR 1.61; PT 19.7 Sec (11.4-14.6)
[2024-06-08 12:31] LABS: % Basophils 2.2 % (0-2); % Eosinophils 6.8 % (0-6); % Immature Granulocytes 0.4 % (0-0.5); % Lymphocytes 34.4 % (20.5-51.1); % Neutrophils 49.2 % (42.2-75.2); Absolute Basophils 0.2 10^3/uL (0-0.2); Absolute Eosinophils 0.5 10^3/uL (0-0.7); Absolute Lymphocytes 2.3 10^3/uL (1.2-3.4); Absolute Monocytes 0.5 10^3/uL (0.1-0.6); Absolute Neutrophils 3.3 10^3/uL (1.4-6.5); Hematocrit 47.9 % (37.0-47.0); Hemoglobin 16.1 g/dL (12.0-16.0); Mean Corp Hgb Conc. 33.6 g/dL (33.0-37.0); Mean Corpuscular Volume 92.1 fL (81.0-99.0); Mean Platelet Volume 11.4 fL (7.4-10.4); Nucleated Red Blood Cells % 0 %; Platelet Count 344 10^3/uL (130-400); White Blood Cell Count 6.7 10^3/uL (4.8-10.8)
[2024-06-08 12:59] LABS: ALT (SGPT) 32 U/L (0-35); AST (SGOT) 28 U/L (14-36); Albumin 4.4 g/dl (3.5-5.0); Alkaline Phosphatase 166 U/L (38-126); Blood Urea Nitrogen 15 mg/dl (7-17); Calcium 9.4 mg/dl (8.4-10.2); Carbon Dioxide 26 mmol/L (22-30); Chloride 107 mmol/L (98-107); Glucose 96 mg/dl (70-99); HDL Cholesterol 58 mg/dl; LDL Cholesterol, Calculated 166 mg/dl; Potassium 4.8 mmol/L (3.5-5.1); Sodium 142 mmol/L (135-145); Total Bilirubin 0.7 mg/dl (0.2-1.3); Total Cholesterol 248 mg/dl (50-199); Triglyceride 122 mg/dl (10-149); Very Low Density Lipoprotein 24 mg/dl (0-30); eGFR > 60.00
== END ==
LOC: HWLAB 10:31
PROVIDERS: ATTENDING PHYSICIAN Internal Medicine Hematology & Oncology; FAMILY PHYSICIAN Family Medicine
DX: D68.61 Antiphospholipid syndrome (principal); Z79.01 Long term (current) use of anticoagulants; I10 Essential (primary) hypertension; E78.2 Mixed hyperlipidemia; I21.4 Non-ST elevation (NSTEMI) myocardial infarction
CPT/HCPCS: 36415; 80053; 80061; 85025; 85610

== ENCOUNTER → 2025-01-22 12:44 | Outpatient (REF) | payer MEDICARE, OTHER, SELFPAY ==
[2025-01-22 14:07] LABS: INR 2.93; PT 30.8 Sec (11.4-14.6)
== END ==
LOC: REG 12:44
PROVIDERS: ATTENDING PHYSICIAN Internal Medicine Hematology & Oncology; FAMILY PHYSICIAN Physician Assistant Medical
DX: D68.61 Antiphospholipid syndrome (principal); Z79.01 Long term (current) use of anticoagulants; Z86.19 Personal history of other infectious and parasitic diseases
CPT/HCPCS: 36415; 85610; 86706